=== PATIENT | female | born 1955 | race Caucasian/White ===

== ENCOUNTER 2025-05-28 15:20 | Outpatient (CLI) | payer MEDICARE, SELFPAY ==
--- OUTSIDE RECORDS SUMMARY | 2020-03-25 11:15 | XMS_ITS | Continuity of Care Document ---
Author Organization Dhruv Merlos [facility] Address ELECT[employer] INTELL[employer] OFFIC[employer] [facility] utions [address] [place] [address] Phone Care Team Providers Care Lead Game Designer Name Role Phone Geeta Fermin DDS Unavailable Unavailable Allergies, Adverse Reactions, Alerts Substance Reaction Status Criticality No Known Drug Allergies Active No I nformation Medications Medication Instructions Dosage Effective Dates (start - stop) Status Comments Nexium 40 mg capsule,delayed release take 1 capsule (40MG) by ORAL route every day - Active Ordered thru patient assistance Feosol 325 mg (65 mg Iron) Tab take 1 tablet (325MG) by ORAL route 2 times every day - Active Lotrisone 1 %-0.05 % Topical Cream Apply thinly to affected area twice a day. - Active Dispense 45gm tube 340 B potassium chloride SR 20 mEq Tab, Particles/Crystals take 1 tablet bid (20MEQ) by ORAL route every day with food for order needy meds - Active 340 B warfarin 4 mg tablet One tablet daily Saturday thru Saturday at 4 PM. - Active warfarin 3 mg Tab One tablet on Saturday and Saturday at 4PM. 3 MG - Active Procedures Procedure Date Prophylaxis-Adult Treatment [...] Provider Providers Copied on Encounter [facility], [facility] [address], [place], [address], [place] tel: [phone] [facility] No Information 0 Zander Connor. [address], [id number] 0, [place], [place], [id number], [place]. tel:[phone] Dhruv Merlos [facility] Luis Manuel modoy, [facility] [address], [place], [address], [place] tel: [phone] [facility] Encounter for dental exam and cleaning w/o abnormal findings 0 Zander Geeta. [address], [id number] 0, [place], [place], [id number], [place]. tel:[phone] Dhruv Merlos [facility] Luis Manuel moody, [facility] [address], [place], [address], [place] tel: [phone] [facility] No Information 4 [facility]. [address] [facility] Ramsey A, [id number] 0, [place], [address], [place]. tel:[phone] OFFICE/OUTPA TIENT VISIT, EST Dhruv Merlos [facility] Luis Manuel moody, [facility] [address], [place], [address], [place] tel: [phone] [facility] physical (chief complaint) Hypercoagulable stateAnxietyGERD (gastroesophageal reflux disease)Elevated BP 3 [facility]. [address] [facility] [place] A, [id number] 0, [place], [place], [id number], [place]. tel:[phone] OFFICE/OUTPA TIENT VISIT, DONTA Merlos [facility] Luis Manuel moody, [facility] [address], [place], [address], [place] tel:[phone] [facility] UTI (chief complaint) Dysuria 3 [facility]. [address] [facility] [place] A, [id number] 0, [place], [facility], [place]. tel:[phone] OFFICE/OUTPA TIENT VISIT, DONTA Merlos [facility] [place], [facility] [employer] [address] [place] [address], [place], [facility], [place] tel:[phone] Sunil Banuelos [facility] PT/INR (chief complaint) Burning with urinationPrimary hypercoagulable state 3 [facility]. [address] [facility] [place] A, [id number] 0, [place], [facility], [place]. tel:[phone] Nurse Visit / Less 7 Days Dhruv [facility], [facility] [employer] [address] [place] [address], [facility], [place] tel:[phone] Sunil Banuelos [facility] lab wk (chief complaint) No Information 2 [facility]. [address] [facility] A, [id number] [place], [place], [facility], [place]. tel:[phone] OFFICE/OUTPA TIENT VISIT, DONTA [facility] [place], [facility] [address] [place] [address], [facility], [place] tel:[phone] Sunil Banuelos [facility] sinus symptoms (acute) (chief complaint) PT/INR (chief complaint) Hypercoagulable stateAcute sinusitis 2 [facility]. 210 [facility], [id number] 0, [place], [address], [place]. tel:[phone] Nurse Visit / Less 7 Days [facility] , [facility] [employer] [address] [place] [address], [facility], [place] tel:[phone] Sunil Banuelos [facility] pro time (chief complaint) No Information 2 [facility]. [address] [facility] [place] A, [id number] 0, [place], [facility], [place]. tel:[phone] OFFICE/OUTPA TIENT VISIT, DONTA Bartlett [email or web address] [facility] , [facility] [address], [facility], [place] [phone] Sunil Banuelos [facility] F/U UTI (chief complaint) UTI (lower urinary tract infection)Vaginit is 2 [facility]. [address] [facility] [place] A, [id number] 0, [place], [facility], [place]. tel:[phone] OFFICE/OUTPA TIENT VISIT, DONTA Merlos [facility] , [facility] [address], [facility], [place] tel:[phone] Sunil Castaneda [facility] UTI (chief complaint) UTI (lower urinary tract infection)Primary hypercoagulable stateGERD (gastroesophageal reflux disease) 2 [facility]. [address] [facility] [place] A, [id number] 0, [place], [facility], [place]. tel:[phone] OFFICE/OUTPA TIENT VISIT, DONTA BowlesTopple Track [facility] , [facility] [address], [facility], [place] [phone] Sunil Banuelos [facility] follow up-INR (chief complaint) Primary hypercoagulable stateAnxietyGERD 2 [facility]. [address] [facility] [place] A, [id number] 0, [place], [facility], [place]. tel:[phone] OFFICE/OUTPA TIENT VISIT, DONTA Bartlett [email or web address] [facility] , [facility] [address], [facility], [place] tel:[phone] Sunil Castaneda [facility] back pain (chief complaint) knee pain (chief complaint) No Information 1 [facility]. [address] [facility] [place] A, [id number] 0, [place], [facility], [place]. tel:[phone] OFFICE/OUTPA TIENT VISIT, DONTA Bartlett [email or web address] [facility] [place], [facility] [address] [place] [address], [place], [facility], [place] tel: [phone] [facility] PT check (chief complaint) Pt med refill (chief complaint) No Information 1 [facility]. [address] [facility] [place] A, [id number] 0, [place], [facility], [place]. tel:[phone] Nurse Visit / Less 7 Days Dhruv Merlos [facility] Luis Manuel moody, [facility] [employer] [address] [place] [address], [place], [facility], [place] tel: [phone] [facility] No Information 1 [facility]. [address] [facility] [place] A, [id number] [facility], [place], [facility], [place]. tel: [phone] Nurse Visit Injection Dhruv Merlos [facility] Luis Manuel moody, [facility] [address] [place] [address], [place], [facility], [place] tel: [phone] [facility] pro time (chief complaint) blood work (chief complaint) No Information 1 Markuser Eder. [address] [facility] A, [id number] 0, [place], [place], [id number], [place]. tel:[phone] OFFICE/OUTPA TIENT VISIT, EST Dhruv Merlos [facility] Luis Manuel moody, [facility] [address] [place] [address], [facility], [place] tel: [phone] [facility] No Information 0 [facility]. [address] [facility] [place] A, [id number] 0, [place], [address], [place]. tel:[phone] Nurse Visit Caid And Care Primary Ins Dhruv Merlos [facility] Luis Manuel moody, [facility] [employer] [address] [place] [address], [place], [facility], [place] tel: [phone] [facility] No Information 0 [facility]. [address] [facility] [place] A, [id number] 0, [place], [address], [place]. tel:[phone] Nurse Visit Injection Dhruv Merlos [facility] Care Brit[place]u [place], [facility] [employer] [address] [place] [address], [place], [facility], [place] tel:[phone] Sunil Leonel [facility] pro time (chief complaint) No Information 0 [facility]. [address] [facility] A, [id number] 0, [place], [facility], [place]. tel:[phone] Nurse Visit Caid And Care Primary Ins Dhruv Merlos [facility] Care Britneyu [place], [facility] [address] [place] [address], [place], [facility], [place] tel:[phone] [facility] No Information 0 [facility]. [address] [facility] A, [id number] 0, [place], [facility], [place]. tel:[phone] OFFICE/OUTPA TIENT VISIT, EST Dhruv Merlos [facility] Care Brit[place]u [place], [facility] [employer] [address] [place] [address], [place], [facility], [place] tel:[phone] [facility] poison maría (chief complaint) No Information 0 [employer] Darlene. [address] [facility], [id number] 0, [place], [address], [place]. tel:[phone] OFFICE/OUTPA TIENT VISIT, EST Dhruv Merlos [facility] Luis Manuel moody, [facility] [employer] [address] [place] [address], [place], [facility], [place] tel:[phone] [facility] foot pain (chief complaint) follow up for pro time (chief complaint) Corns and callositiesGERDPr imary hypercoagulable stateInsomnia, OtherAnxiety 0 [employer] Darlene. [address] [facility], [id number] 0, [place], [address], [place]. tel:[phone] OFFICE/OUTPA TIENT VISIT, EST Dhruv Merlos [facility] Luis Manuel moody, [facility] [employer] [address] [place] [address], [place], [facility], tel:[phone] [facility] No Information Apr-0 9-201 0 [employer] Darlene. [address], [id number] [place], [place], [facility], . tel:[phone] [facility] [address] [place] [address], tel:[phone] [facility] No Information Oct- 0-201 0 [employer] Darlene. [address], [id number] [address] [place] [address], . tel:[phone] OFFICE/OUTPA TIENT VISIT, [facility] [address] [place] [address], tel:[phone] [facility] No Information Dec- 7-200 9 [employer] Darlene. [address] [facility] [address], [id number] [address] [place] [address], . tel:[phone] Family History Family Member Type Diagnosis Age At Onset No Information Payers Payer name Insurance type Covered libertarian ID cassandra tinoco(s) [employer] [id number] Social History Type Description Quantity Date Captured [...]
[2025-05-28 20:26] LABS: Hematocrit 41.4 % (37.0-47.0); Hemoglobin 13.0 g/dL (12.2-16.2); Immature Granulocytes % 0.2 %; Mean Corpuscular HGB Conc 31.4 g/dL (31.8-35.4); Mean Corpuscular Hemoglobin 30.0 pg (27.0-31.2); Mean Corpuscular Volume 95.6 fl (81-99); Nucleated Red Blood Cells % 0 %; Platelet Count 161 K/mm3 (142-424); Red Blood Count 4.33 M/mm3 (4.20-5.40); Red Cell Distribution Width-SD 48.5 fL; White Blood Count 6.5 K/mm3 (4.8-10.8)
[2025-05-28 20:37] LABS: Alanine Aminotransferase 33 U/L (12-78); Albumin Level 3.9 g/dl (3.5-5.0); Albumin/Globulin Ratio 1.6 (1.1-1.8); Alkaline Phosphatase 82 U/L (38-126); Anion Gap 10.0 mEq/L (5-15); Aspartate Amino Transferase 61 U/L (14-36); Bilirubin,Total 0.8 mg/dl (0.2-1.3); Blood Urea Nitrogen 21 mg/dl (7-17); Calcium 8.7 mg/dl (8.4-10.2); Carbon Dioxide 25 mmol/L (22.0-30.0); Chloride 105 mmol/L (98-107); Cholesterol 106 mg/dl (140-200); Creatinine,Serum 0.80 mg/dl (0.52-1.04); Estimated Glomerular Filt Rate 71 ml/min (>60); GFR (African American) 86 ML/MIN (>60); Globulin 2.4 g/dL (1.3-3.2); Glucose 88 mg/dl (74-100); HDL Cholesterol 35 mg/dl (40-60); Potassium 4.0 mmoL/L (3.5-5.1); Sodium 136 mmol/L (136-145); Total Protein,Serum 6.3 g/dl (6.3-8.2); Triglycerides 98 mg/dl (30-150)
[2025-05-28 20:55] LABS: 25-OH Vitamin D, Total 37.2 ng/mL (30-100)
[2025-05-28 21:06] LABS: Iron 100 ug/dL (37-170)
[2025-05-28 21:16] LABS: Total Iron Binding Capacity 317 ug/dL (265-497)
[2025-05-28 21:25] LABS: Hepatitis C Ab Qual. W/ RFX NEGATIVE (Negative)
[2025-05-28 21:34] LABS: Thyroid Stimulating Hormone 2.81 uIU/mL (0.465-4.68); Vitamin B12 > 1000 pg/mL (239-931)
--- OUTSIDE RECORDS SUMMARY | 2025-05-31 11:17 | XMS_ITS | Encounter Summary ---
Author Organization [facility] [address] [place] [address] Phone Care Team Providers Care Insurance Defense Paralegal Name Role Phone Keyur North MD Unavailable Unavaila ble Leandra Gonzales MD Primary Care Provider [phone] Leandra Gonzales MD Unavailable Reason for Visit * Reason Onset Date Comments Results 02/28/2024 Encounter Details Date Type Department Care Team (Late st Contact Info) Description 02/28/2024 Telephone [facility] [address] [place] [address] Leandra Gonzales MD [address] [place] [address] Social History Tobacco Use Types Packs/Day Years Used Date Smoking Tobacco: Never Smokeless Tobacco: Never Alcohol Use Standard Drinks/Week Comments No 0 (1 standard drink = 0.6 oz pur e alcohol) PHQ-2 Answer Date Recorded Patient Health Questionnaire-2 Score 0 02/26/2024 Food Insecurities Answer Date Recorded Within the past 12 months, d id you worry that your food would run out before you got money to buy more? No 02/26/2024 Within the past 12 months, d id the food you bought just not last and you didn't have money to get more? No 02/26/2024 Housing/Utilities Answer Date Recorded Are you worried about losing your housing? No 02/26/2024 Within the past 12 months, h ave you ever stayed: outside, in a car, in a tent, in an overnight mcc, or temporarily in someone else's home (i.e. couch-surfing)? No 02/26/2024 Within the past 12 months, h ave you been unable to get utilities (heat, electricity) when it was really needed? No 024 Interpersonal Safety Answer Date Record ed Do you feel physically or em otionally unsafe where you currently live? No 02/26/2024 Within the past 12 months, h ave you been hit, slapped, kicked or otherwise physically hurt by anyone? No 02/26/2024 Within the past 12 months, h ave you been hit, slapped, kicked or otherwise physically hurt by anyone? No 02/26/2024 Transportation Answer Date Recorded Within the past 12 months, h as a lack of transportation kept you from medical appointments or from doing things needed for daily living? No 02/26/2024 Utilities Answer Date Recorded Are you worried about losing your housing? No 02/26/2024 Within the past 12 months, h ave you ever stayed: outside, in a car, in a tent, in an overnight mcc, or temporarily in someone else's home (i.e. couch-surfing)? No 02/26/2024 Within the past 12 months, h ave you been unable to get utilities (heat, electricity) when it was really needed? No 024 Comments No Sex and Gender Information Value Date Recorded Sex Assigned at Not on file Legal Sex Female 2:11 PM EST Gender Identity Female 04/18/2018 6:35 AM EDT Sexual Orientation Not on file documented as of this encounter Functional Status * Are you deaf or do you have serious difficulty hearing? Answer Date of Assessment Author No 04/18/2018 7:10 AM EDT Chichi Ibarra, Registered Nurse * Are you blind or do you have serious difficulty seeing, even when wearing glasses? Answer Date of Assessment Author No 04/14/2018 2:18 PM EDT Boone Granados, Registered Nurse * Do you have serious difficulty walking or climbing stairs? (5 years old or older) Answer Date of Assessment Author No 04/18/2018 7:10 AM EDT Chichi Ibarra, Registered Nurse * Do you have difficulty dressing or bathing? (5 years old or older) Answer Date of Assessment Author No 04/18/2018 7:10 AM EDT Chichi Ibarra, Registered Nurse * Because of a physical, mental, or emotional condition, do you have difficulty doing errands alone such as visiting a doctor???s office or shopping? (15 years old or older) Answer Date of Assessment Author No 04/18/2018 7:10 AM EDT Chichi Ibarra, Registered Nurse documented as of this encounter Mental Status * Because of a physical, mental, or emotional condition, do you have serious difficulty concentrating, remembering, or making decisions? (5 years old or older) Answer Entry Date Author No 04/14/2018 2:18 PM EDT Boone Granados Registered Nurse documented in this encounter Miscellaneous Notes * Telephone Encounter - Shraddha Fischer Registered Nurse - 02/28/2024 2:06 PM EDT Patient calling [phone] (home) Read the following message to the patient: ou do have some bacteria in the urine. I want to treat this with an antibiotic. I will send that inand push fluids. Written by Leandra Gonzales MD on 02/28/2024 2:00 PM EDT Average sugar over 3 months is normal. You do have some bacteria in the urine. I want to treat this with an antibiotic. I will send that in and push fluids. Written by Leandra Gonzales MD on 02/28/2024 2:00 PM EDT Vit D is slightly low. Ok to take 5000 units daily to boost levels for 12 weeks and then decrease to 1000 units daily. You do have some bacteria in the urine. I want to treat this with an antibiotic. I will send that in and push fluids. Written by Leandra Gonzales MD on 02/28/2024 2:00 PM EDT Iron is slighlty low. I am glad you had the stool testing done. When you get the results, will you make sure to let me know. Insurance generally is good about sending them to us but I want to make sure I get to see it. I suspect iron is low from your surgery and just not absorbing iron well but I want to make sure you are not losing it in your stool. Ok to start on OTC iron. Start with low dose of ferrous sulfate 325 mgm once daily, and if tolerated, increase dose to 2-3 tabs daily. The side effects of iron are primarily GI upset and constipation. You may need to take stool softener with the medication. You do have some bacteria in the urine. I want to treat this with an antibiotic. I will send that in and push fluids. Written by Leandra Gonzales MD on 02/28/2024 2:00 PM EDT Your thyroid, which controls your metabolism, is normal. Continue your current dose of medication. You do have some bacteria in the urine. I want to treat this with an antibiotic. I will send that in and push fluids. Written by Leandra Gonzales MD on 02/28/2024 2:00 PM EDT Your CBC is fine. This measures for your red and white blood cells, the size of them and the platelets. You do have some bacteria in the urine. I want to treat this with an antibiotic. I will send that i... Written by Leandra Gonzales MD on 02/28/2024 2:00 PM EDT View Full Comments Kidney function is fine. Sugar is normal. Calcium is slightly low. Make sure you are getting calcium in your diet and you can take 1200 mg a calcium/day in supplements. Liver function is elevated slightly. I do want to repeat this in about 6 weeks to trend this out further. You can either call and schedule a lab only appointment in our office or use the walk-in lab at [facility]. You do have some bacteria in the urine. I want to treat this with an antibiotic. I will send that in and push fluids. Written by Leandra Gonzales MD on 02/28/2024 2:00 PM EDT Cholesterol is great overall. Continue to increase exercise to try and increase your HDL. High levels help protect the heart. You do have some bacteria in the urine. I want to treat this with an antibiotic. I will send that in and push fluids. Written by Leandra Gonzales MD on 02/28/2024 2:00 PM EDT Magnesium is in good range. You do have some bacteria in the urine. I want to treat this with an antibiotic. I will send that in and push fluids. Written by Leandra Gonzales MD on 02/28/2024 2:00 PM EDT Patient verbalized understanding. Patient already takes Ferrous Sulfate 325mg BID since 1999. Patient will take a third tablet daily. documented in this encounter Plan of Treatment Upcoming Encounters Date Type Department Care Team (Late st Contact Info) Description 09/17/2025 2:00 PM EST Office Visit [facility] [place] [facility] [address] [facility] [address] [place] [address] [place] [address] [place] [phone] documented as of this encounter Visit Diagnoses Not on filedocumented in this encounter Additional Health Concerns Assessment Noted Time PHQ-2 Depression Total Score: 0 02/26/20 24 2:48 PM EDT documented as of this encounter Care Teams Insurance Defense Paralegal Relationship Specialty Start Date End Date Leandra Gonzales MD PCP - General Internal Medicine 06/30/18 Leandra Gonzales MD PCP - Jacek DE GUZMAN Attributed Physician 02/01/20 Keyur North MD Attending Physician Hand Surgery 12/17/17 documented as of this encounter
--- OUTSIDE RECORDS SUMMARY | 2025-05-31 11:17 | XMS_ITS | Encounter Summary ---
Author Organization [facility] Address [facility] [place] [address] Phone Care Team Providers Care Field Artillery Operations Man Name Role Phone Keyur North MD Unavailable Unavaila ble Leandra Gonzales MD Primary Care Provider [phone] Leandra Gonzales MD Unavailable Encounter Details Date Type Department Care Team (Late st Contact Info) Description 01/01/2022 Collaborative Link Encounter [facility] [address] [place], [place] [phone] Social History Tobacco Use Types Packs/Day Years Used Date Smoking Tobacco: Never Smokeless Tobacco: Never Alcohol Use Standard Drinks/Week Comments No 0 (1 standard drink = 0.6 oz pur e alcohol) Comments No Sex and Gender Information Value Date Recorded Sex Assigned at Not on file Legal Sex Female 2:11 PM EST Gender Identity Female 04/18/2018 6:35 AM EDT Sexual Orientation Not on file documented as of this encounter Functional Status * Are you deaf or do you have serious difficulty hearing? Answer Date of Assessment Author No 04/18/2018 7:10 AM EDT Chichi Ibarra Registered Nurse * Are you blind or do you have serious difficulty seeing, even when wearing glasses? Answer Date of Assessment Author No 04/14/2018 2:18 PM EDT Boone Granados Registered Nurse * Do you have serious difficulty walking or climbing stairs? (5 years old or older) Answer Date of Assessment Author No 04/18/2018 7:10 AM EDT [place], Chichi A, Registered Nurse * Do you have difficulty dressing or bathing? (5 years old or older) Answer Date of Assessment Author No 04/18/2018 7:10 AM EDT Chichi Ibarra Registered Nurse * Because of a physical, mental, or emotional condition, do you have difficulty doing errands alone such as visiting a doctor???s office or shopping? (15 years old or older) Answer Date of Assessment Author No 04/18/2018 7:10 AM EDT Chichi Ibarra Registered Nurse documented as of this encounter Mental Status * Because of a physical, mental, or emotional condition, do you have serious difficulty concentrating, remembering, or making decisions? (5 years old or older) Answer Entry Date Author No 04/14/2018 2:18 PM EDT Boone Granados Registered Nurse documented in this encounter Progress Notes * Lydia Flood - 01/01/2022 12:55 PM EDT Scheduled patient for their physical for 02/09/2022 2:30 PM documented in this encounter Plan of Treatment Upcoming Encounters Date Type Department Care Team (Late st Contact Info) Description 09/17/2025 2:00 PM EST Office Visit [facility] Heart & Vascular [place] [facility] [address] [place] [address] [place] [address] [place] [address] documented as of this encounter Visit Diagnoses Not on filedocumented in this encounter Care Teams Field Artillery Operations Man Relationship Specialty Start Date End Date Leandra Gonzales MD PCP - General Internal Medicine 06/30/18 Leandra Gonzales MD PCP - [place] MA Attributed Physician 02/01/20 Keyur North MD Attending Physician Hand Surgery 12/17/17 documented as of this encounter
--- OUTSIDE RECORDS SUMMARY | 2025-05-31 11:18 | XMS_ITS | Encounter Summary ---
Author Organization [facility] Address [address] [place] [address] Phone Care Team Providers Care Freezer Machine Operator Name Role Phone Keyur North MD Unavailable Unavaila ble Leandra Gonzales MD Primary Care Provider [phone] Leandra Gonzales MD Unavailable Encounter Details Date Type Department Care Team (Late st Contact Info) Description 06/14/2023 SCAN [facility] [place] [facility] [address] [place] [address] [address] [place] [address] Social History Tobacco Use Types Packs/Day Years Used Date Smoking Tobacco: Never Smokeless Tobacco: Never Alcohol Use Standard Drinks/Week Comments No 0 (1 standard drink = 0.6 oz pur e alcohol) PHQ-2 Answer Date Recorded Patient Health Questionnaire-2 Score 0 02/20/2023 Comments No Sex and Gender Information Value [...] Granados Registered Nurse documented in this encounter Plan of Treatment Upcoming Encounters Date Type Department Care Team (Late st Contact Info) Description 09/17/2025 2:00 PM EST Office Visit [facility] [place] [facility] [address] [place] [address] [place] [address] [place] [address] documented as of this encounter Procedures Procedure Name Priority Date/Time Associated Diagnosis Comments ELECTROCARDIOGRAM, COMPLETE Routine 03/11/2023 documented in this encounter Results * ELECTROCARDIOGRAM, COMPLETE (03/11/2023) Historical Med EKG Final Result documented in this encounter Visit Diagnoses Not on filedocumented in this encounter Additional Health Concerns Assessment Noted Time PHQ-2 Depression Total Score: 0 02/21/20 23 2:56 PM EDT documented as of this encounter Care Teams Freezer Machine Operator Relationship Specialty Start Date End Date Leandra Gonzales MD PCP - General Internal Medicine 06/30/18 Leandra Gonzales MD PCP - Jacek DE GUZMAN Attributed Physician 02/01/20 Keyur North MD Attending Physician Hand Surgery 12/17/17 documented as of this encounter
--- OUTSIDE RECORDS SUMMARY | 2025-05-31 11:18 | XMS_ITS | Encounter Summary ---
Author Organization [facility] Address [facility] [place] [address] Phone Care Team Providers Care Lump Machine Operator Name Role Phone Keyur North MD Unavailable Unavaila ble Leandra Gonzales MD Primary Care Provider [phone] Leandra Gonzales MD Unavailable Encounter Details Date Type Department Care Team ([facility] st Contact Info) Description 10/19/2022 Collaborative Link Encounter [facility] [address] [place] [phone] Social History Tobacco Use Types Packs/Day Years [...] AM EDT Sexual Orientation Not on file COVID-19 Exposure Response Date Recorded In the last 10 days, have yo u been in contact with someone who was confirmed or suspected to have Coronavirus/COVID-19? No / Unsure 10/19/2022 3:00 PM EST documented as of this encounter Functional Status * Are you deaf or do you have serious difficulty hearing? Answer Date of Assessment Author No 04/18/2018 7:10 AM EDT Chichi Ibarra, Registered Nurse * Are you blind or do you have serious difficulty seeing, even when wearing glasses? Answer Date of Assessment Author No 04/14/2018 2:18 PM Boone Heath, Registered Nurse * Do you have serious difficulty walking or climbing stairs? (5 years old or older) Answer Date of Assessment Author No 04/18/2018 7:10 AM EDT Chichi Ibarra, Registered Nurse * Do you have difficulty dressing or bathing? (5 years old or older) Answer Date of Assessment Author No 04/18/2018 7:10 AM EDChichi Cardoza, Registered Nurse * Because of a physical, mental, or emotional condition, do you have difficulty doing errands alone such as visiting a doctor???s office or shopping? (15 years old or older) Answer Date of Assessment Author No 04/18/2018 7:10 AM EDChichi Cardoza Registered Nurse documented as of this encounter Mental Status * Because of a physical, mental, or emotional condition, do you have serious difficulty concentrating, remembering, or making decisions? (5 years old or older) Answer Entry Date Author No 04/14/2018 2:18 PM Boone Heath Registered Nurse documented in this encounter Progress Notes * Jeanie Jasso - 10/19/2022 2:36 PM EST Attempted to contact patient for Medicare Wellness Visit due on 02/10/2023, left VM. If patient returns call, please schedule for Medicare Wellness Visit with primary care office. Thank you documented in this encounter Plan of Treatment Upcoming Encounters Date Type Department Care Team (Late st Contact Info) Description 09/17/2025 2:00 PM EST Office Visit [facility] Heart & V[facility] [place] [facility] [address] [place] [address] [place] [address] [place] [address] documented as of this encounter Visit Diagnoses Not on filedocumented in this encounter Care Teams Lump Machine Operator Relationship Specialty Start Date End Date Leandra Gonzales MD PCP - General Internal Medicine 06/30/18 Leandra Gonzales MD PCP - Jacek DE GUZMAN Attributed Physician 02/01/20 Keuyr North MD Attending Physician Hand Surgery 12/17/17 documented as of this encounter
--- OUTSIDE RECORDS SUMMARY | 2025-05-31 11:18 | XMS_ITS | Encounter Summary ---
Author Organization [facility] Address [facility] [place] [address] Phone Care Team Providers Care Kaiako Kura [place] Maori Name Role Phone Keyur North MD Unavailable Unavaila ble Leandra Gonzales MD Primary Care Provider [phone] Leandra Gonzales MD Unavailable Reason for Visit * Reason Onset Date Comments Refill Request 04/28/2025 Encounter Details Date Type Department Care Team (Late st Contact Info) Description 04/28/2025 Refill [facility] & [facility] [place] [facility] [address] [place] [address] Adriana Saleh, Registered Nurse Permanent atrial fibrillation Social History Tobacco Use Types Packs/Day Years Used Date Smoking Tobacco: Never Smokeless Tobacco: Never Alcohol Use Standard Drinks/Week Comments No 0 (1 standard drink = 0.6 oz pur e alcohol) PHQ-2 Answer Date Recorded Patient Health Questionnaire-2 Score 0 11/20/2024 Food Insecurities Answer Date Recorded Within the past 12 months, d id you worry that your food would run out before you got money to buy more? No 11/20/2024 Within the past 12 months, d id the food you bought just not last and you didn't have money to get more? No 11/20/2024 Housing/Utilities Answer Date Recorded Are you worried about losing your housing? No 11/20/2024 Within the past 12 months, h ave you ever stayed: outside, in a car, in a tent, in an overnight longterm, or temporarily in someone else's home (i.e. couch-surfing)? No 11/20/2024 Within the past 12 months, h ave you been unable to get utilities (heat, electricity) when it was really needed? No 025 Interpersonal Safety Answer Date Record ed Do you feel physically or em otionally unsafe where you currently live? No 11/20/2024 Within the past 12 months, h ave you been hit, slapped, kicked or otherwise physically hurt by anyone? No 11/20/2024 Within the past 12 months, h ave you been humiliated or emotionally abused by anyone? No 11/20/2024 Transportation Answer Date Recorded Within the past 12 months, h as a lack of transportation kept you from medical appointments or from doing things needed for daily living? No 11/20/2024 Utilities Answer Date Recorded Are you worried about losing your housing? No 11/20/2024 Within the past 12 months, h ave you ever stayed: outside, in a car, in a tent, in an overnight longterm, or temporarily in someone else's home (i.e. couch-surfing)? No 11/20/2024 Within the past 12 months, h ave you been unable to get utilities (heat, electricity) when it was really needed? No 025 Comments No Sex and Gender Information Value Date Recorded Sex Assigned at Not on file Legal Sex Female 2:11 PM EST Gender Identity Female 04/18/2018 6:35 AM EDT Sexual Orientation Not on file documented as of this encounter Functional Status * Are you deaf or do you have serious difficulty hearing? Answer Date of Assessment Author No 08/28/2024 11:15 AM Shae Celaya, Registered Nurse * Are you blind or do you have serious difficulty seeing, even when wearing glasses? Answer Date of Assessment Author No 08/28/2024 11:15 AM Shae Celaya, Dana Nurse * Do you have serious difficulty walking or climbing stairs? (5 years old or older) Answer Date of Assessment Author No 08/28/2024 11:15 AM Shae Celaya, Dana Nurse * Do you have difficulty dressing or bathing? (5 years old or older) Answer Date of Assessment Author No 08/28/2024 11:15 AM Shae Celaya Registered Nurse * Because of a physical, mental, or emotional condition, do you have difficulty doing errands alone such as visiting a doctor???s office or shopping? (15 years old or older) Answer Date of Assessment Author No 08/28/2024 11:15 AM Shae Celaya Registered Nurse documented as of this encounter Mental Status * Because of a physical, mental, or emotional condition, do you have serious difficulty concentrating, remembering, or making decisions? (5 years old or older) Answer Entry Date Author No 08/28/2024 11:15 AM Shae Celaya Registered Nurse documented in this encounter Miscellaneous Notes * Telephone Encounter - Adriana Saleh Registered Nurse - 04/28/2025 8:04 AM EDT Refill Request Preferred Pharmacy information: [email or web address] - [place], [place] - [address] [place] [address] Last Appointment: 07/05/23 Future Appointment: 09/17/25 Lab(s): cbc and cmp-11/20/24 Medication Requested: [email or web address] documented in this encounter Plan of Treatment Upcoming Encounters Date Type Department Care Team (Late st Contact Info) Description 09/17/2025 2:00 PM EST Office Visit [facility] Heart & Vascular [place] [facility] [address] [facility] [facility] [address] [place] [address] [place] [address] [place] [address] documented as of this encounter Goals Goal Patient Goal Type Associated Problems Recent Progress Patient-Stated? Author BUTCH CC COLONOSCOPY PREP PATIENT EDUCATION GOAL TEMPLATE Care Plan MYC COLONOSCOPY PREP EDUCATION No Lilibeth Cardoza CC COLONOSCOPY PREP PATIENT EDUCATION GOAL TEMPLATE Care Plan MYC COLONOSCOPY PREP EDUCATION No Darlene Madrigal documented as of this encounter Visit Diagnoses Diagnosis Permanent atrial fibrillation Atrial fibrillation documented in this encounter Additional Health Concerns Active Problems Noted Date Diagnosed Date MYC COLONOSCOPY PREP EDUCATION 08/11/2024 MYC COLONOSCOPY PREP EDUCATION 08/11/2024 Assessment Noted Time PHQ-2 Depression Total Score: 0 11/21/19 25 11:28 AM EDT documented as of this encounter Care Teams Kaiako Kura [place] Maori Relationship Specialty Start Date End Date Leandra Gonzales MD PCP - General Internal Medicine 06/30/18 Leandra Gonzales MD PCP - Jacek DE GUZMAN Attributed Physician 02/01/20 Keyur North MD Attending Physician Hand Surgery 12/17/17 documented as of this encounter
--- OUTSIDE RECORDS SUMMARY | 2025-05-31 11:18 | XMS_ITS | Clinical Summary ---
Author Organization [facility] Phone Care Team Providers Care Survey Manager Name Role Phone Unavailable Primary Care Provider Unavailabl e Social History Tobacco Use Types Packs/Day Years Used Date Smoking Tobacco: Never Assessed Comments Unknown Sex and Gender Information Value Date Recorded Sex Assigned at Not on file Legal Sex Female 3:46 PM EDT Gender Identity Not on file Sexual Orientation Not on file Plan of Treatment Upcoming Encounters Date Type Department Care Team (Late st Contact Info) Description 07/13/2025 3:15 PM EST [facility] [email or web address] [address] Jalil Hall MD [address] [place] [address] Health Maintenance Due Date Last Done Comments Annual Wellness Exam 1956 Hepatitis C Screening 1971 DTaP/TDaP/Td (1 - Tdap) 1972 Breast Cancer Screening 1993 Cologuard 1998 Colon Cancer Screening 1998 Colonoscopy 1998 FIT 1998 Sigmoidoscopy 1998 Virtual Colonography 1998 Pneumococcal Vaccine 50+ (1 of 1 - PCV) 2003 Zoster (1 of 2) 2003 Bone Density Screening 2018 COVID-19 Vaccine (2023-2 5 season) 2025 Influenza Vaccine (#1) 2025 Hepatitis B Vaccine Aged Out No longe r eligible based on patient's age to complete this topic Meningococcal B Vaccine Aged Out No l onger eligible based on patient's age to complete this topic
--- OUTSIDE RECORDS SUMMARY | 2025-05-31 11:18 | XMS_ITS | Encounter Summary ---
Author Organization [facility] Address [facility] [place] [address] Phone Care Team Providers Care Harvest Contractor Name Role Phone Keyur North MD Unavailable Unavaila ble Leandra Gonzales MD Primary Care Provider [phone] Leandra Gonzales MD Unavailable Encounter Details Date Type Department Care Team ([facility] st Contact Info) Description 08/07/2022 Collaborative Link Encounter [facility] [address] [place], [place] [id number] Social History Tobacco Use Types Packs/Day Years [...] Assessment Author No 04/18/2018 7:10 AM EDT [place], Chichi A, Registered Nurse * Do you [...] documented in this encounter Progress Notes * Maria Guadalupe Sanders - 08/07/2022 12:57 PM EST Contacted patient to discuss FIT test. FIT test mailed to patient and confirming that patient received kit. If patient did not receive kit, please verify address. If address is correct - kit should be coming in the mail within the next few days. Recommending for patient to complete kit prior to endo year. Left voicemail advising patient of this information, OK per PHI. documented in this encounter Plan of Treatment Upcoming Encounters Date Type Department Care Team (Late st Contact Info) Description 09/17/2025 2:00 PM EST Office Visit [facility] Heart & Vascular [place] [facility] [address] [facility] [address] [place] [address] [place] [address] [place] [address] documented as of this encounter Visit Diagnoses Not on filedocumented in this encounter Care Teams Harvest Contractor Relationship Specialty Start Date End Date Leandra Gonzales MD PCP - General Internal Medicine 06/30/18 Leandra Gonzales MD PCP - Jacek DE GUZMAN Attributed Physician 02/01/20 Keyur North MD Attending Physician Hand Surgery 12/17/17 documented as of this encounter
--- OUTSIDE RECORDS SUMMARY | 2025-05-31 11:18 | XMS_ITS | Encounter Summary ---
Author Organization [facility] Address [facility] [place] [address] Phone Care Team Providers Care Pst Specialist Name Role Phone Keyur North MD Unavailable Unavaila ble Leandra Gonzales MD Primary Care Provider [phone] Leandra Gonzales MD Unavailable Encounter Details Date Type Department Care Team ([facility] st Contact Info) Description 06/11/2022 Collaborative Link Encounter [facility] [address] [place] [phone] Social History Tobacco Use Types Packs/Day Years [...] suspected to have Coronavirus/COVID-19? No / Unsure 06/06/2022 3:10 PM EDT documented as of this encounter Functional Status [...] documented in this encounter Progress Notes * Cookie Mixon - 06/11/2022 12:48 PM EDT Contacted patient about below open care gaps: Colonoscopy Patient is due for colonoscopy ??? please have them contact [facility] at [phone] to schedule. If patient has completed colonoscopy, please obtain provider/facility information and send telephone encounter with information to Care Gaps [facility]. documented in this encounter Plan of Treatment Upcoming Encounters Date Type Department Care Team (Late st Contact Info) Description 09/17/2025 2:00 PM EST Office Visit [facility] Heart & Vascular [place] - [facility] [address] [facility] [address] [place] [address] [place] [address] [place] [address] documented as of this encounter Visit Diagnoses Not on filedocumented in this encounter Care Teams Pst Specialist Relationship Specialty Start Date End Date Leandra Gonzales MD PCP - General Internal Medicine 06/30/18 Leandra Gonzales MD PCP - Jacek DE GUZMAN Attributed Physician 02/01/20 Keyur North MD Attending Physician Hand Surgery 12/17/17 documented as of this encounter
--- OUTSIDE RECORDS SUMMARY | 2025-05-31 11:18 | XMS_ITS | Encounter Summary ---
Author Organization [facility] Address [facility] [place] [place] [address] Phone Care Team Providers Care Assembler Dry Cell And Battery Name Role Phone Keyur North MD Unavailable Unavaila ble Leandra Gonzales MD Primary Care Provider [phone] Leandra Gonzales MD Unavailable Encounter Details Date Type Department Care Team ([facility] st Contact Info) Description 07/14/2024 Collaborative Link Encounter [facility] [address] [place], [place] [phone] Social History Tobacco Use Types Packs/Day Years [...] car, in a tent, in an overnight custodial, or temporarily in someone else's home (i.e. [...] car, in a tent, in an overnight custodial, or temporarily in someone else's home (i.e. [...] of Assessment Author No 04/14/2018 2:18 PM KEISHAT Boone Granados Registered Nurse * Do you have serious difficulty walking or climbing stairs? (5 years old or older) Answer Date of Assessment Author No 04/18/2018 7:10 AM Chichi Solorzano Registered Nurse * Do you have difficulty dressing or bathing? (5 years old or older) Answer Date of Assessment Author No 04/18/2018 7:10 AM Chichi Solorzano Registered Nurse * Because of a physical, [...] 2:18 PM EDT Boone Granados, Registered Nurse documented in this encounter Progress Notes * Marquita Madrigal - 07/14/2024 12:44 PM EST Contacted patient about below open care gaps: Said she did the 1st kit that was sent out but has not recieved any results Colorectal Cancer Screening If patient returns call, please schedule with primary care office. documented in this encounter Plan of Treatment Upcoming Encounters Date Type Department Care Team (Late st Contact Info) Description 09/17/2025 2:00 PM EST Office Visit [facility] Heart & [facility] [place] [facility] [address] [facility] [address] [place] [address] [place] [address] [place] [address] documented as of this encounter Visit Diagnoses Not on filedocumented in this encounter Additional Health Concerns Assessment Noted Time PHQ-2 Depression Total Score: 0 02/26/20 24 2:48 PM EDT documented as of this encounter Care Teams Assembler Dry Cell And Battery Relationship Specialty Start Date End Date Leandra Gonzales MD PCP - General Internal Medicine 06/30/18 Leandra Gonzales MD PCP - Jacek DE GUZMAN Attributed Physician 02/01/20 Keyur North MD Attending Physician Hand Surgery 12/17/17 documented as of this encounter
--- OUTSIDE RECORDS SUMMARY | 2025-05-31 11:18 | XMS_ITS | Clinical Summary ---
Author Organization [facility] Address [address] [place] [address] Phone Care Team Providers Care Flight Engineer Inspector Name Role Phone Keyur North MD Unavailable Unavaila ble Leandra Gonzales MD Primary Care Provider [phone] Leandra Gonzales MD Unavailable Allergies No known active allergies Medications * This document contains information received from the source organization and may not represent a complete record from that organization. Multiple Vitamin (MULTIVITAMIN) TABS Take 1 tablet by mouth daily. Active VITAMIN E PO Take 1 tablet by mouth daily. Active ascorbic acid (VITAMIN C) 500 MG TABS Take 1,000 mg by mouth daily. Active Cholecalciferol (VITAMIN D PO) Take by mouth 2 (two) times daily. Active VITAMIN A PO Take 1 tablet by mouth daily. Active Cyanocobalamin (VITAMIN B 12 PO) Take 1 tablet by mouth daily. Active B Complex Vitamins (VITAMIN B COMPLEX PO) Take 1 tablet by mouth daily. Active esomeprazole (NEXIUM) 40 MG CPDR Take 1 capsule by mouth every morning before breakfast. 90 capsule 1 5 Active ferrous gluconate (FERGON) 325 (36 FE) MG TABS Take 1 tablet by mouth 2 (two) times daily. 180 tablet 1 5 Active Zinc 100 MG TABS Take 1 tablet by mouth daily. Active TURMERIC CURCUMIN PO Take by mouth. Active Misc Natural Products (HEALTHY LIVER PO) Take by mouth 2 (two) times daily. Active furosemide (LASIX) 40 MG TABSIndications:L eft leg swelling TAKE 1 TABLET BY MOUTH EVERY MORNING. FOR SWELLING 90 tablet 1 5 Active calcium carbonate (OYSTER SHELL CALCIUM) 500 mg tablet TAKE 1 TABLET BY MOUTH TWICE A DAY 180 tablet 1 5 Active metoprolol tartrate (LOPRESSOR) 50 MG TABS TAKE 1 TABLET BY MOUTH TWICE A DAY 180 tablet 1 5 Active levothyroxine (SYNTHROID, LEVOTHROID) 50 MCG TABS TAKE 1 TABLET BY MOUTH EVERY DAY 90 tablet 1 5 Active potassium chloride SA (KLOR-CON M20) 20 MEQ TBCR Take 1 tablet by mouth 2 (two) times daily. 180 tablet 1 5 Active rivaroxaban (XARELTO) 20 mg TABSIndications:P ermanent atrial fibrillation (HCC) Take 1 tablet by mouth daily. 90 tablet 1 5 Active Active Problems Problem Noted Date Diagnosed Date Hypercoagulable state 02/07/2022 Age-related osteoporosis wit hout current pathological fracture 05/22/2019 Overview (05/22/2019): - noted on DEXA 05/21 Rivaroxaban anticoagulation - CHADS VASC = 2 Subclinical hypothyroidism 01/06/2016 Gastroesophageal reflux disease without esophagi tis 12/19/2015 Permanent atrial fibrillation 11/30/2014 History of DVT (deep vein thrombosis) 10/29/2014 S/P bariatric surgery 10/29/2014 Resolved Problems Problem Noted Date Diagnosed Date Resolved Date On amiodarone therapy 12/05/20182019 Bilateral carpal tunnel syndrome 02/11/2018 02/07/[address] ug level monitoring 12/20/2016 12/05/2018 Irregular heart rate 10/29/2014 015 Atrial fibrillation 10/29/2014 12/01/19 15 shelter current use of ant icoagulant therapy 10/29/2014 04/11/2018 Paroxysmal atrial fibrillation 10/29/2014 11/30/2014 Encounters Date Type Department Care Team Description 04/28/2025 Refill [facility] [place] [facility] [address] [place] [address] Adriana Saleh, Registered Nurse Permanent atrial fibrillation 03/29/2025 Telephone [facility] [place] [address] [place] [address] Leandra Gonzales MD from Last 3 Months Immunizations Immunization Administration Dates Next Due Betamethasone 01/14/2018 Family History Medical History Relation Name Comments Alcohol/Drugs Father Diabetes Father Heart Disease Father CHF. 72 High BP Father High Cholesterol Father Cancer Maternal Grandfather pt unaw are of type, 88 High BP Mother High Cholesterol Mother Heart Attack Other High BP Sister 1 High Cholesterol Sister 1 Thyroid Disease Sister 1 High BP Sister 2 Thyroid Disease Sister 2 Alcohol/Drugs Son 1 Diabetes Son 2 type I Blood Disorder Neg Hx Breast cancer Neg Hx Ovarian cancer Neg Hx Stroke Neg Hx Relation Name Status Comments Father Maternal Grandfather Mother Other Sister 1 Sister 2 Son 1 Son 2 Social History Tobacco Use Types Packs/Day Years Used Date Smoking Tobacco: Never Smokeless Tobacco: Never Tobacco Cessation:Counseling Given: No Alcohol Use Standard Drinks/Week Comments No 0 [...] car, in a tent, in an overnight halfway, or temporarily in someone else's home (i.e. XAware-surfing)? No 11/20/2024 Within the past 12 months, [...] car, in a tent, in an overnight halfway, or temporarily in someone else's home (i.e. [...] AM EDT Sexual Orientation Not on file Last Filed Vital Signs Vital Sign Reading Time Taken Comments Blood Pressure 126/82 11/20/2024 11:23 AM EDT Pulse 68 11/20/2024 11:23 AM EDT Temperature 36.6 C (97.8 F) 08/28/2024 11:02 AM EST Respiratory Rate 13 08/28/2024 12:15 PM EST Oxygen Saturation 98% 11/20/2024 11:23 AM EDT Inhaled Oxygen Concentration - - Weight 88 kg (194 lb) 11/20/2024 11:23 AM EDT Height 165.1 cm (5' 5 ) 11/20/2024 11:23 AM EDT Body Mass Index 32.28 11/20/2024 11:23 AM EDT Plan of Treatment Upcoming Encounters Date Type Department Care Team (Late st Contact Info) Description 09/17/2025 2:00 PM EST Office Visit [facility] Heart & V[facility] [place] - [facility] [address] [facility] [address] [place] [address] [place] [address] [place] [address] Health Maintenance Due Date Last Done Comments DTap,Tdap,and Td (1 - Tdap) 1964 Pneumococcal 50+ (1 of 1 - PCV) 2003 Shingrix (#1) 2003 Mammogram Screening 10/03/2024 10/03/2023, 09/29/2021, 05/22/2019, Additional history exists Influenza Vaccine (#1) 2025 Wellness 65 and over 11/20/2025 11/20/2024, 02/26/2024, 02/20/2023, Additional history exists RSV Vaccine (60+ or ) (1 - 1-dose 75+ series) 2028 Colonoscopy 08/28/2034 08/28/2024 DEXA Scan Completed 10/03/2023, 09/03, 05/22/2019 Hepatitis C Screening Completed 12/30/2024 , 05/20/2024, 08/15/2018 (Declined) HPV Aged Out No longer eligi ble based on patient's age to complete this topic Meningococcal conjugate valent 4 (MCV4) Aged Out No longer eligible based on patient's age to complete this topic RSV Immunization (<20 months) Aged Out No longer eligible based on patient's age to complete this topic Goals Goal Patient Goal Type Associated Problems Recent Progress Patient-Stated? Author BUTCH CC COLONOSCOPY PREP PATIENT EDUCATION GOAL TEMPLATE Care Plan MYC COLONOSCOPY PREP EDUCATION No Lilibeth Cardoza CC COLONOSCOPY PREP PATIENT EDUCATION GOAL TEMPLATE Care Plan MYC COLONOSCOPY PREP EDUCATION No Darlene Madrigal Procedures Procedure Name Priority Date/Time Associated Diagnosis Comments ACUTE HEPATITIS PANEL (HAA, HBCM, HBAG, HCV WITH REFLEX TO HCV QUANT NAAT) Routine 12/30/2024 12:01 PM EDT Elevated transaminase level DXA BONE DENSITY Routine 10/03/2023 3:18 PM EST Age-related osteoporosis without current pathological fracture CAROLYN SCR BILAT Routine 10/03/2023 2:58 PM EST Encounter for screening mammogram for malignant neoplasm of breast from Last 3 Months or Most Recently Relevant to Health Maintenance Results * Acute Hepatitis Panel (HAA, HBCM, HBAG, HCV with reflex to HCV QUANT NAAT) (12/30/2024 12:01 PM EDT) HEPATITIS A AB IGM NONREACTIVE NONREACTIVE [facility]CE[facility] HEP B CORE IGM NONREACTIVE NONREACTIVE B [facility] RECEIV[facility] HEP B SURFACE AG NONREACTIVE NONREACTIVE [facility] Comment: (NOTE) HBsAg not detected. Does not exclude possibility of exposure to HBV. HEPATITIS C AB NONREACTIVE NONREACTIVE B [facility] RECEIV[facility] Comment: (NOTE) No antibodies to HCV detected. Does not exclude possibility of exposure to HCV. Test performed using Bridgett Elecsys electrochemiluminescence immunassay (ECLIA). Tested at: [facility], [address] [address] Whole Blood 12/30/2024 12:0 1 PM EDT 12/30/2024 12:06 PM EDT us Leandra Gonzales MD LAB BLOOD ORDERABLES Final Resul t [facility] [address] [place] [address] [facility]CE[facility] [address] [place] [address] * DXA BONE DENSITY (10/03/2023 3:18 PM EST) Anatomical Region Laterality Modality Chest Radiographic Lien ging, Mammography 10/03/2023 4:18 PM EST Impressions 10/03/2023 4:19 PM EST OSTEOPOROSIS. T-scores fulfill WHO criteria for osteoporosis. The risk of fracture is increased. Consider treatment if clinically appropriate. It is important to exclude secondary causes of osteoporosis. Patients with low bone density should have regular DXA scans. The scanning interval should be determined according to the clinical status of the patient and/or the treatment regimen. INTERVAL CHANGE: There is a statistically significant change as follows: There has been a change of 0.032 g/cm2 or a 3.8% increase at the lumbar spine Comparison is made using BMD, not T-scores. The spine followed by the total hip are the most reliable anatomic sites for comparison. While the femoral neck and radius are validated for diagnosis, these sites typically have lower precision and are therefore less reliable for evaluating change in BMD and/or decision making regarding pharmacologic therapy. Narrative 10/03/2023 4:19 PM EST HISTORY: Age-related osteoporosis without current pathological fracture Screening for osteoporosis COMPARISON: 2021 NOTE: If there are questions about the content of this report, please contact [facility] radiology by calling [phone] DXA scanner: LoiLo W ([id number]). LSC in g/cm2 at 95% confidence: Lumbar spine 0.027, Total hip 0.034. FRAX software version: 3.08. COMPARISON machine: Same TECHNICAL LIMITATIONS/EXCLUSIONS: None FINDINGS: LUMBAR SPINE L1-L4: T-score: -1.5 BMD in g/cm2: 0.881 LEFT HIP: Neck T-score: -3.0 Neck BMD in g/cm2: 0.517 Total T-score: -3.4 Total BMD in g/cm2: 0.53 FRAX: Not reported because T-score of the hip or spine is not between -1.0 and - 2.5 (per NOF guidelines) FRAX risk factor(s): None Major osteoporotic fracture risk: Not reported% Hip fracture risk: Not reported% The FRAX calculation is based on patient answers to a questionnaire and can be associated with overestimation or underestimation of fracture risk. Therefore FRAX should be validated by the ordering physician. NOTE REGARDING TREATMENT: Approaches to reduce osteoporosis-related fracture risk include optimizing calcium and vitamin D status and fall-prevention measures. The National Osteoporosis Foundation treatment guidelines recommend treatment for: - Those with hip fracture or vertebral fracture (clinical or asymptomatic) - Those with T-score -2.5 or lower at total hip, femoral neck or spine by DXA, after appropriate evaluation - Low bone mass and 10-year probability of a hip fracture equal to or greater than 3% or a 10-year probability of a major osteoporotic fracture equal to or greater than 20% (FRAX). All treatment decisions require clinical management and consideration of individual factors. Procedure Note Gal Ferguson MD - 10/03/2023 HISTORY: Age-related osteoporosis without current pathological fractureScreening for osteoporosis COMPARISON: 2021 NOTE: If there are questions about the content of this report, pleasecontact [facility] radiology by calling [phone] DXA scanner: LoiLo W ([id number]). LSC in g/cm2 at 95%confidence: Lumbar spine 0.027, Total hip 0.034. FRAX software version:3.08. COMPARISON machine: Same TECHNICAL LIMITATIONS/EXCLUSIONS: None FINDINGS: LUMBAR SPINE L1-L4: T-score: -1.5 BMD in g/cm2: 0.881 LEFT HIP: Neck T-score: -3.0 Neck BMD in g/cm2: 0.517 Total T-score: -3.4 Total BMD in g/cm2: 0.53 FRAX: Not reported because T-score of the hip or spine is not between -1.0and - 2.5 (per NOF guidelines) FRAX risk factor(s): None Major osteoporotic fracture risk: Not reported% Hip fracture risk: Not reported% The FRAX calculation is based on patient answers to a questionnaire andcan be associated with overestimation or underestimation of fracture risk.Therefore FRAX should be validated by the ordering physician. NOTE REGARDING TREATMENT: Approaches to reduce osteoporosis-related fracture risk include optimizingcalcium and vitamin D status and fall-prevention measures. The NationalOsteoporosis Foundation treatment guidelines recommend treatment for: - Those with hip fracture or vertebral fracture (clinical orasymptomatic) - Those with T-score -2.5 or lower at total hip, femoral neck or spine byDXA, after appropriate evaluation - Low bone mass and 10-year probability of a hip fracture equal to orgreater than 3% or a 10-year probability of a major osteoporotic fractureequal to or greater than 20% (FRAX). All treatment decisions require clinical management and consideration ofindividual factors. IMPRESSION OSTEOPOROSIS. T-scores fulfill WHO criteria for osteoporosis. The risk offracture is increased. Consider treatment if clinically appropriate. Itis important to exclude secondary causes of osteoporosis. Patients withlow bone density should have regular DXA scans. The scanning interval should be determined according tothe clinical status of the patient and/or the treatment regimen. INTERVAL CHANGE: There is a statistically significant change as follows: There has been a change of 0.032 g/cm2 or a 3.8% increase at the lumbarspine Comparison is made using BMD, not T-scores. The spine followed by thetotal hip are the most reliable anatomic sites for comparison. While thefemoral neck and radius are validated for diagnosis, these sites typicallyhave lower precision and are therefore less reliable for evaluating change in BMD and/or decisionmaking regarding pharmacologic therapy. Leandra Gonzales MD [facility] Final Result * CAROLYN SCR BILAT (10/03/2023 2:58 PM EST) Anatomical Region Laterality Modality Chest Bilateral Mammography, Rad iographic Imaging 10/03/2023 4:38 PM EST Impressions 10/03/2023 4:39 PM EST No mammographic evidence of malignancy CATEGORY BI-RADS: 1: Negative MANAGEMENT: Routine annual mammography unless otherwise clinically indicated NOTE: If additional imaging is recommended, the Breast Center will contact the patient directly to coordinate that appointment, or scheduling can be reached at [phone]. RISK ASSESSMENT: A preliminary breast cancer risk assessment was conducted as part of the patient?s screening mammogram. Patients with a preliminarily elevated screening score who are interested in further information are encouraged to contact our High Risk Navigator at [phone], or provider can place a referral to the high risk breast program, [id number]. Patient's lifetime Lyric model risk: 5.61% (20% and greater considered high risk) [facility] Family History Risk Score: 0 (1 and greater considered high risk) Narrative 10/03/2023 4:39 PM EST SCREENING DIGITAL BILATERAL MAMMOGRAM WITH COMPUTER AIDED DETECTION HISTORY: Routine annual screening COMPARISON: Multiple prior mammograms with the most recent prior dated 09/29/2021 TECHNIQUE: Bilateral mediolateral oblique and craniocaudal views with computer aided detection BREAST COMPOSITION: Scattered fibroglandular densities FINDINGS: No suspicious masses, suspicious microcalcifications or areas of nonsurgical architectural distortion identified. Leandra Gonzales MD [facility] Final Result from Last 3 Months or Most Recently Relevant to Health Maintenance Additional Health Concerns Active Problems Noted Date Diagnosed Date MYC COLONOSCOPY PREP EDUCATION 08/11/2024 MYC COLONOSCOPY PREP EDUCATION 08/11/2024 Insurance [facility] MEDIC[facility] REPLACEMENT [id number] [place], [facility] Care Teams Flight Engineer Inspector Relationship Specialty Start Date End Date Leandra Gonzales MD PCP - General Internal Medicine 06/30/18 Leandra Gonzales MD PCP - Jacek DE GUZMAN Attributed Physician 02/01/20 Keyur North MD Attending Physician Hand Surgery 12/17/17
== END 2025-05-28 23:59 ==
LOC: LAB.DROPOF 05-31 11:10
PROVIDERS: PCP Family Medicine; Visit Provider Family Medicine
DX: M81.0 Age-related osteoporosis without current pathological fracture (principal); E03.9 Hypothyroidism, unspecified; R60.0 Localized edema; Z98.84 Bariatric surgery status; Z11.59 Encounter for screening for other viral diseases
CPT/HCPCS: 80053; 80061; 82306; 82607; 83540; 83550; 84443; 85025; 86803; 87389

== ENCOUNTER 2025-07-08 08:48 | Outpatient (CLI) | payer MEDICARE, SELFPAY ==
--- OUTSIDE RECORDS SUMMARY | 2025-07-08 08:59 | XMS_ITS | Encounter Summary ---
Author Organization [facility] Address [facility] [place] [address] Phone Care Team Providers Care Red Mud Thickener Operator Name Role Phone Keyur North MD Unavailable Unavaila ble Leandra Gonzales MD Primary Care Provider [phone] Leandra Gonzales MD Unavailable Encounter Details Date Type Department Care Team ([facility] st Contact Info) Description 10/19/2022 Collaborative Link Encounter [facility] [address] [place] [phone] Social History Tobacco Use Types Packs/Day Years [...] Description 09/17/2025 2:00 PM EST Office Visit [facility] Heart & Vascular [place] - [facility] [address] [facility] [address] [place] [address] [place] [address] [place] [address] documented as of this encounter Visit Diagnoses Not on filedocumented in this encounter Care Teams Red Mud Thickener Operator Relationship Specialty Start Date End Date Leandra Gonzales MD PCP - General Internal Medicine 06/30/18 Leandra Gonzales MD [address] [place] [address] PCP - Jacek DE GUZMAN Attributed Physician 02/01/20 04/01/25 Keyur North MD Attending Physician Hand Surgery 12/17/17 documented as of this encounter
--- OUTSIDE RECORDS SUMMARY | 2025-07-08 08:59 | XMS_ITS | Clinical Summary ---
Author Organization [facility] Phone Care Team Providers Care Signalman Name Role Phone Unavailable Primary Care Provider [...] Description 07/13/2025 3:15 PM EST [facility] [address] [place] [address] Jalil Hall MD [address] [place] [address] Health Maintenance Due Date Last Done Comments Annual Wellness Exam 1956 Hepatitis C Screening 1971 DTaP/TDaP/Td (1 - Tdap) 1972 Breast Cancer Screening 1993 Cologuard 1998 Colon Cancer Screening 1998 Colonoscopy 1998 FIT 1998 Sigmoidoscopy 1998 Virtual Colonography 1998 Pneumococcal Vaccine 50+ (1 of 1 - PCV) 2003 Zoster (1 of 2) 2003 Bone Density Screening 2018 COVID-19 Vaccine (2024-2 6 season) 2025 Influenza Vaccine (#1) 2025 Hepatitis B Vaccine Aged Out No longe r eligible based on patient's age to complete this topic Meningococcal B Vaccine Aged Out No l onger eligible based on patient's age to complete this topic
--- OUTSIDE RECORDS SUMMARY | 2025-07-08 08:59 | XMS_ITS | Encounter Summary ---
Author Organization [facility] Address [facility] [place] [place] [address] Phone Care Team Providers Care Director Of Corporate Strategy Name Role Phone Keyur North MD Unavailable Unavaila ble Leandra Gonzales MD Primary Care Provider [phone] Leandra Gonzales MD Unavailable Encounter Details Date Type Department Care Team ([facility] st Contact Info) Description 07/14/2024 Collaborative Link Encounter [facility] [address] [place], [place] [phone] Social History Tobacco Use Types Packs/Day Years [...] car, in a tent, in an overnight assisted, or temporarily in someone else's home (i.e. [...] humiliated or emotionally abused by anyone? No 02/26/2024 Transportation Answer Date [...] car, in a tent, in an overnight assisted, or temporarily in someone else's home (i.e. [...] of Assessment Author No 04/18/2018 7:10 AM KEISHAT Chichi Ibarra, Registered Nurse * Do you have difficulty dressing or bathing? (5 years old or older) Answer Date of Assessment Author No 04/18/2018 7:10 AM KEISHAT Chichi Ibarra Registered Nurse * Because of [...] Description 09/17/2025 2:00 PM EST Office Visit [facility] Heart & Vascular [place] - [facility] [address] [facility] [address] [place] [address] [place] [address] [place] [address] documented as of this encounter Visit Diagnoses Not on filedocumented in this encounter Additional Health Concerns Assessment Noted Time PHQ-2 Depression Total Score: 0 02/26/20 24 2:48 PM EDT documented as of this encounter Care Teams Director Of Corporate Strategy Relationship Specialty Start Date End Date Leandra Gonzales MD PCP - General Internal Medicine 06/30/18 Leandra Gonzales MD [address] [place] [address] PCP - [place] MA Attributed Physician 02/01/20 04/01/25 Keyur North MD Attending Physician Hand Surgery 12/17/17 documented as of this encounter
--- OUTSIDE RECORDS SUMMARY | 2025-07-08 08:59 | XMS_ITS | Encounter Summary ---
Author Organization [facility] Address [facility] [place] [address] Phone Care Team Providers Care Thermodynamics Professor Name Role Phone Keyur North MD Unavailable Unavaila ble Leandra Gonzales MD Primary Care Provider [phone] Leandra Gonzales MD Unavailable Encounter Details Date Type Department Care Team ([facility] st Contact Info) Description 06/11/2022 Collaborative Link Encounter [facility] [address] [place] [phone] Social History Tobacco Use Types Packs/Day Years [...] for colonoscopy ??? please have them contact [facility] at [phone] to schedule. If patient has completed colonoscopy, please obtain provider/facility information and send telephone encounter with information to Care Gaps [facility]. documented in this encounter Plan of Treatment Upcoming Encounters Date Type Department Care Team (Late st Contact Info) Description 09/17/2025 2:00 PM EST Office Visit [facility] Heart & Vascular [place] - [facility] [address] [facility] [address] [place] [address] [place] [address] [place] [address] documented as of this encounter Visit Diagnoses Not on filedocumented in this encounter Care Teams Thermodynamics Professor Relationship Specialty Start Date End Date Leandra Gonzales MD PCP - General Internal Medicine 06/30/18 Leandra Gonzales MD [address] [place] [address] PCP - Jacek DE GUZMAN Attributed Physician 02/01/20 04/01/25 Keyur North MD Attending Physician Hand Surgery 12/17/17 documented as of this encounter
--- OUTSIDE RECORDS SUMMARY | 2025-07-08 08:59 | XMS_ITS | Encounter Summary ---
Author Organization [facility] Address [address] [place] [address] Phone Care Team Providers Care Block Mechanic Name Role Phone Keyur North MD Unavailable Unavaila ble Leandra Gonzales MD Primary Care Provider [phone] Leandra Gonzales MD Unavailable Encounter Details Date Type Department Care Team (Late st Contact Info) Description 06/14/2023 SCAN [facility] Heart & V[facility] [place] [address] [place] [address] Social History Tobacco Use Types [...] Office Visit [facility] [place] [facility] [address] [facility] [address] [place] [address] [place] [address] [place] [address] documented as of this encounter Procedures Procedure [...] documented as of this encounter Care Teams Block Mechanic Relationship Specialty Start Date End Date Leandra Gonzales MD PCP - General Internal Medicine 06/30/18 Leandra Gonzales MD [address] [place] [address] PCP - Jacek DE GUZMAN Attributed Physician 02/01/20 04/01/25 Keyur North MD Attending Physician Hand Surgery 12/17/17 documented as of this encounter
--- OUTSIDE RECORDS SUMMARY | 2025-07-08 08:59 | XMS_ITS | Clinical Summary ---
Author Organization [facility] Address [address] [place] [address] Phone Care Team Providers Care Geriatric Personal Care Aide Name Role Phone Keyur North MD, Sarah MD Primary Care Provider [phone] Allergies No known active allergies Medications * [...] 10/29/2014 015 Atrial fibrillation 10/29/2014 12/01/19 15 correction current use of ant icoagulant therapy 10/29/2014 04/11/2018 Paroxysmal atrial fibrillation 10/29/2014 11/30/2014 Encounters Date Type Department Care Team Description 04/28/2025 Refill [facility] [address] [place] [address] Adriana Saleh, Registered Nurse Permanent atrial fibrillation from Last 3 Months Immunizations Immunization Administration [...] car, in a tent, in an overnight chcf, or temporarily in someone else's home (i.e. [...] car, in a tent, in an overnight chcf, or temporarily in someone else's home (i.e. [...] Description 09/17/2025 2:00 PM EST Office Visit [facility] [place] [facility] [address] [facility] [facility] [address] [place] [address] [place] [address] [place] [address] Health Maintenance Due Date Last [...] Type Associated Problems Recent Progress Patient-Stated? Author MYC CC COLONOSCOPY PREP PATIENT EDUCATION GOAL TEMPLATE [...] EDT) HEPATITIS A AB IGM NONREACTIVE NONREACTIVE [facility] HEP B CORE IGM NONREACTIVE NONREACTIVE B [facility] HEP B SURFACE AG NONREACTIVE NONREACTIVE [facility] Comment: (NOTE) HBsAg not detected. Does not exclude possibility of exposure to HBV. HEPATITIS C AB NONREACTIVE NONREACTIVE B [facility] RECEIV[facility] Comment: (NOTE) No antibodies to HCV detected. Does not exclude possibility of exposure to HCV. Test performed using Bridgett Elecsys electrochemiluminescence immunassay (ECLIA). Tested at: [facility], [address] [place] [address] Whole Blood 12/30/2024 12:0 1 PM EDT 12/30/2024 12:06 PM EDT us Leandra Gonzales MD LAB BLOOD ORDERABLES Final Resul t [facility] [address] [place] [address] [facility] [address] [place] [address] * DXA BONE DENSITY (10/03/2023 3:18 PM [...] the content of this report, please contact [facility] radiology by calling [phone] DXA scanner: Content Raven W ([id number]). LSC in g/cm2 at 95% confidence: Lumbar [...] about the content of this report, pleasecontact [facility] radiology by calling [phone] DXA scanner: VasoNova Horizon W ([id number]). LSC in g/cm2 at 95%confidence: Lumbar spine [...] in BMD and/or decisionmaking regarding pharmacologic therapy. us Leandra LEON Final Result * CAROLYN SCR BILAT (10/03/2023 [...] appointment, or scheduling can be reached at [phone]. RISK ASSESSMENT: A preliminary breast cancer risk assessment was conducted as part of the patient?s screening mammogram. Patients with a preliminarily elevated screening score who are interested in further information are encouraged to contact our High Risk Navigator at [phone], or provider can place a referral to the high risk breast program, [id number]. Patient's lifetime Lyric model risk: 5.61% (20% and greater considered high risk) [facility] Family History Risk Score: 0 (1 [...] nonsurgical architectural distortion identified. Leandra Gonzales MD [facility] Final Result from Last 3 Months or Most Recently Relevant to Health Maintenance Additional Health Concerns Active Problems Noted Date Diagnosed Date MYC COLONOSCOPY PREP EDUCATION 08/11/2024 MYC COLONOSCOPY PREP EDUCATION 08/11/2024 Insurance [employer] REPLACEMENT Care Teams Geriatric Personal Care Aide Relationship Specialty Start Date End Date Leandra Gonzales MD PCP - General Internal Medicine 06/30/18 Keyur North MD Attending Physician Hand Surgery 12/17/17
--- OUTSIDE RECORDS SUMMARY | 2025-07-08 08:59 | XMS_ITS | Encounter Summary ---
Author Organization [facility] Address [facility] [place] [address] Phone Care Team Providers Care Rough Planer Tender Name Role Phone Keyur North MD Unavailable Unavaila ble Leandra Gonzales MD Primary Care Provider [phone] Leandra Gonzales MD Unavailable Encounter Details Date Type Department Care Team ([facility] st Contact Info) Description 08/07/2022 Collaborative Link Encounter [facility] [address] [place], [place] [id number] Social History Tobacco Use Types Packs/Day Years [...] Assessment Author No 04/18/2018 7:10 AM EDT Ed[place], Chichi A, Registered Nurse * Do you [...] Description 09/17/2025 2:00 PM EST Office Visit [facility] [place] [facility] [address] [place] [address] [place] [address] [place] [address] documented as of this encounter Visit Diagnoses Not on filedocumented in this encounter Care Teams Rough Planer Tender Relationship Specialty Start Date End Date Leandra Gonzales MD PCP - General Internal Medicine 06/30/18 Leandra Gonzales MD [address] [place] [address] PCP - Jacek DE GUZMAN Attributed Physician 02/01/20 04/01/25 Keyur North MD Attending Physician Hand Surgery 12/17/17 documented as of this encounter
--- OUTSIDE RECORDS SUMMARY | 2025-07-08 08:59 | XMS_ITS | Encounter Summary ---
Author Organization [facility] Address [facility] [place] [address] Phone Care Team Providers Care Liquified Natural Gas Specialist Name Role Phone Keyur North MD Unavailable Unavaila ble Leandra Gonzales MD Primary Care Provider [phone] Leandra Gonzales MD Unavailable Encounter Details Date Type Department Care Team (Late st Contact Info) Description 01/01/2022 Collaborative Link Encounter [facility] [address] [place], [place] [id number] Social History Tobacco Use Types Packs/Day Years [...] Assessment Author No 04/18/2018 7:10 AM EDT [place], Chichi A, Registered Nurse * Do you [...] Description 09/17/2025 2:00 PM EST Office Visit [facility] [place] [facility] [address] [facility] [address] [place] [address] [place] [address] [place] [address] documented as of this encounter Visit Diagnoses Not on filedocumented in this encounter Care Teams Liquified Natural Gas Specialist Relationship Specialty Start Date End Date Leandra Gonzales MD PCP - General Internal Medicine 06/30/18 Leandra Gonzales MD [address] [facility] [place] [address] PCP - Jacek DE GUZMAN Attributed Physician 02/01/20 04/01/25 Keyur North MD Attending Physician Hand Surgery 12/17/17 documented as of this encounter
--- OUTSIDE RECORDS SUMMARY | 2025-07-08 08:59 | XMS_ITS | Encounter Summary ---
Author Organization [facility] Address [facility] [place] [address] Phone Care Team Providers Care Cash Register Servicer Name Role Phone Keyur North MD Unavailable Unavaila ble Leandra Gonzales MD Primary Care Provider [phone] Leandra Gonzales MD Unavailable Reason for Visit * Reason Onset Date Comments Results 02/28/2024 Encounter Details Date Type Department Care Team (Late st Contact Info) Description 02/28/2024 Telephone [facility] [address] [place] [address] Leandra Gonzales MD [address] [place] [address] Social History Tobacco Use Types [...] car, in a tent, in an overnight care home, or temporarily in someone else's home (i.e. [...] car, in a tent, in an overnight care home, or temporarily in someone else's home (i.e. [...] - 02/28/2024 2:06 PM EDT Patient calling [phone] (home) Read the following message to the [...] office or use the walk-in lab at [facility]. You do have some [...] Description 09/17/2025 2:00 PM EST Office Visit [facility] [place] [facility] [address] [facility] [address] [place] [address] [place] [address] [place] [address] documented as of this encounter Visit Diagnoses Not on filedocumented in this encounter Additional Health Concerns Assessment Noted Time PHQ-2 Depression Total Score: 0 02/26/20 24 2:48 PM EDT documented as of this encounter Care Teams Cash Register Servicer Relationship Specialty Start Date End Date Leandra Gonzales MD PCP - General Internal Medicine 06/30/18 Leandra Gonzales MD [address] [place] [address] PCP - Jacek DE GUZMAN Attributed Physician 02/01/20 04/01/25 Keyur North MD Attending Physician Hand Surgery 12/17/17 documented as of this encounter
--- NOTE | 2025-07-08 09:00 | XR_ITS ---
FINAL REPORT TECHNIQUE: Bone densitometry calculations of the lumbar spine and left hip were obtained. CLINICAL HISTORY: Osteoporosis Bone Density Screening COMPARISON: None FINDINGS: Using L1-4, the bone mineral density of the spine is 0.883 g/cm2, corresponding to T-score of -1.5 and a Z score of 0.7. This is within the range of osteopenia. Using the left hip, the bone mineral density of the femoral neck is 0.540 g/cm2, corresponding to a T-score of -3.3 and a Z-score of -1.7. This is within the range of osteoporosis. Using the right hip, the bone mineral density of the femoral neck is 0.612 g/cm?, corresponding to a T-score of -2.7 and a Z-score of -1.1. This is within the range of osteoporosis. NOTE: T-score: Standard deviation compared with peak bone mass of young adult mean. *Following the recommendations of the International Society of Bone densitometry, classification of hip BMD is based on the lower of two T-scores; total hip or femoral neck. IMPRESSION: 1. Bone mineral density of the lumbar spine within the range of osteopenia. 2. Bone mineral density of the bilateral femoral necks within the range of osteoporosis. Reviewed, Interpreted and Dictated by Maile Bartlett MD Transcribed by Jonelle Granados Authenticated and [facility]
== END 2025-07-08 23:59 | disposition home or self-care (01) ==
LOC: RAD 08:49
PROVIDERS: PCP Family Medicine; Visit Provider Family Medicine
DX: M85.88 Other specified disorders of bone density and structure, other site (principal); M81.0 Age-related osteoporosis without current pathological fracture; M19.90 Unspecified osteoarthritis, unspecified site
CPT/HCPCS: 77080

== ENCOUNTER 2025-07-23 11:00 | Outpatient (CLI) | payer MEDICARE, SELFPAY ==
--- OUTSIDE RECORDS SUMMARY | 2025-07-13 15:15 | XMS_ITS | Encounter Summary ---
Author Organization [facility] Address [address] [place] [address] Care Team Providers Care Director Of Mobile Marketing Name Role Phone Unavailable Primary Care Provider Unavailabl e Reason for Referral * Surgical (Routine) - Pending Review Specialty Diagnoses / Procedures Referred By Contac t Referred To Contact Diagnoses Primary osteoarthritis of left knee Procedures AMB [facility] [place] [address] [place] [address] Phone: tel: fax: Referral ID Status Reason Start Date Expiration Date V isits Requested Visits Authorized [id number] Pending Review 07/13/2025 07/13/2026 1 1 * Physical Therapy (Routine) - Pending Review Specialty Diagnoses / Procedures Referred By Esa lopez Referred To Contact Physical Therapy Diagnoses Primary [place] [address] [place] [address] Phone: tel: fax: Referral ID Status Reason Start Date Expiration Date V isits Requested Visits Authorized [id number] Pending Review 07/13/2025 07/13/2026 1 1 Question Answer surgical procedure total knee arthroplasty Evaluate and Treat Yes Select as appropriate Evaluate and treat appropriately Modalities/Procedures As Indicated Therapeutic Exercise As Indicated Goals: Decrease pain and swelling, Increase ROM, Increase function, Increase strength Additional instructions: Frequency and duration per therapist discretion, Teach HEP Medical Necessity: Prevent need for non-conservative measures, Promote full function post operatively Reason for Visit * Reason Comments Pain Encounter Details Date Type Department Care Team (Late st Contact Info) Description 07/13/2025 3:15 PM EST Office Visit [facility] [address] [place], [place] [id number] Jalil Hall MD [address] [place] [address] Left knee pain, unspecified chronicity (Primary Dx); Primary osteoarthritis of left knee Social History Tobacco Use Types Packs/Day Years Used Date Smoking Tobacco: Never Assessed Comments Unknown Sex and Gender Information Value Date Recorded Sex Assigned at Not on file Legal Sex Female 3:46 PM EDT Gender Identity Not on file Sexual Orientation Not on file documented as of this encounter Progress Notes * Jalil Hall MD - 07/13/2025 3:15 PM EST Images from the original note were not included. [address] [phone] ([phone] [place], [place] [phone] [place], [place] Marley López 1955 Chief Complaint Patient presents with Left Knee - Pain Subjective: Marley López is a 69 y.o. female presenting for evaluation of Left more than right knee pain. Referred by Dr. Meneses New Patient The pain began a few years ago. Pain is described as grinding, dull, aching of the knee. Symptoms improve with rest, ice, OTC NSAIDs. The symptoms are worse with activity such as walking, exercising,kneeling, and squatting. Treatment to date has been without significant relief. At this point, the patient describes having significant pain. The pain is more than just a nuisance; it is affecting the patient's quality of life. Going up and down stairs, standing for long periodsof time, and walking long distances are difficult. Rest, ice, anti-inflammatory medications and assisted devices have been tried. None of this has really solved the problem. Left more than right knee pain Affects her QOL Tried rest, ice, nsaids, injections, PT exercises. No lasting relief. Here today to discuss surgical intervention. Non Smoker Tried PT BMI of less than 35 Social History Substance and Sexual Activity Drug Use Not on file Tobacco Use History[1] Objective: Review of Systems Constitutional: Negative. Respiratory: Negative. Cardiovascular: Negative. Gastrointestinal: Negative. Musculoskeletal: Positive for joint pain. Skin: Negative. There is no height or weight on file to calculate BMI. On physical examination the patient is alert and oriented. Appropriate mood for the conversation. Well-developed and well-nourished in appearance. Limited gait examination reveals no obvious abnormalities. Bilateral upper and lower extremities demonstrate apparently normal range of motion and stability with intact pulses and sensation to light touch of the wrist, hand, ankle and foot bilaterally.Skin of bilateral upper and lower extremities with no obvious rash or lesions. Apparently normal muscle tone and reflexes for bilateral knees and ankles. No evidence of obvious significant lymphedemaof bilateral lower extremities. Respiratory rate is normal by clinical examination. Pulse rate is normal by peripheral pulse examination. Right Knee Exam Comments: Examination of the right knee shows that it is stable to varus and valgus stressing. Normal anterior/posterior drawer testing. Normal Real testing. Normal Jennifer testing. There is tenderness to palpation over the medial joint line, as well as the patellofemoral joint. The skin is intact. Left Knee Exam Comments: Examination of the left knee shows that it is stable to varus and valgus stressing. Normal anterior/posterior drawer testing. Normal Real testing. Normal Jennifer testing. There is tenderness to palpation over the medial joint line, as well as the patellofemoral joint. The skin is intact. Imaging: X-rays reviewed today of the bilateral knee show osteoarthritic degenerative change with joint space narrowing, subchondral sclerosis and osteophyte formation. There are no acute findings noted in these films. Kellgren-Oscar Grade 3/4 Assessment and Plan: Diagnoses and all orders for this visit: Left knee pain, unspecified chronicity - XR KNEE LEFT AP LATERAL INTERNAL AND EXTERNAL OBLIQUES; Future - ID RIGID WHEELED WALKER ADJ/FIX Primary osteoarthritis of left knee - AMB REFERRAL TO PHYSICAL THERAPY - AMB [facility] SURGERY COMMUNICATION ORDER - ID RIGID WHEELED WALKER ADJ/FIX PLAN: Recommend conservative treatment Discussed treatment options Right knee OA, severe Tolerable overall today Left knee OA, severe Affects her QOL Tried rest, ice, nsaids, injections, PT exercises. No lasting relief. Patient would likely benefit from surgical intervention. We will proceed with a left total knee arthroplasty. She does have severe osteoporosis. We will consider this at the time of surgery. She takes Xarelto 20mg daily She had a blood clot in her 30s She works for [employer] from home RISKS OF SURGERY: An extensive conversation was held with the patient and/or family regarding the risks, benefits, potential complication and reasonable expectations of the planned procedure. Informed verbal consent was given under no distress. We had ample opportunities for questions regarding the usual outcomes. Risks discussed, but not limited to the following, include possible: bleeding, infection, damage to blood vessels and/or nerves, blood clots, anesthesia complications, loss of reduction (if fracture), re-tear or re-injury (if ligament/tendon fixed), hardware breakage or failure (if used), need for additional surgery, post- operative stiffness, looseness, leg length discrepancy, and dislocation (where applicable). In addition, in rare cases the patient may have loss of a limb or even . Where applicable, we discussed bearing surfaces, fixation, implant materials, and expected longevity. No guarantee of any particular results were given. The patient voiced understanding that in some cases surgery can make them worse. In spite of this, the patient and/or family desired that we proceedwith the operation and expressed clear understanding of these risks. 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 No problems with anesthesia DME Summary No orders found for display Please note that this salvage cutter was created using voice recognition software. Any errors are unintentional and may be due to voice recognition salvage cutter. Parts of this note may have been created by a chart review, combined by taking my own patient history. The patient was physically seen and examined by myself, including a personal review of images, tests, and formation of the impression and plan. If questions occur please do not hesitate to call our office. [1] Social History Tobacco Use Smoking Status Not on file Smokeless Tobacco Not on file documented in this encounter Miscellaneous Notes * Addendum Note - Cristobal Reese MA - 07/13/2025 3:15 PM ESTAddended by: CRISTOBAL REESE on: 07/13/2025 04:35 PM Modules accepted: Orders documented in this encounter Plan of Treatment Upcoming Encounters Date Type Department Care Team (Late st Contact Info) Description 10/27/2025 3:45 PM EST Office Visit [facility] [address] [place] [address] Ladonna Saldana NP [address] [place] [address] Scheduled Orders Name Type Priority Associated Diagnoses Orde r Schedule ID RIGID WHEELED WALKER ADJ/FIX ID Charge Routine Left knee pain, unspecified chronicity Primary osteoarthritis of left knee Ordered: 07/13/2025 Scheduled Referrals Name Type Priority Associated Diagnoses Orde r Schedule AMB REFERRAL TO PHYSICAL THERAPY Outpatient Referral Routine Primary osteoarthritis of left knee Ordered: 07/13/2025 documented as of this encounter Results * XR KNEE LEFT AP LATERAL INTERNAL AND EXTERNAL OBLIQUES (07/13/2025 4:02 PM EST) Xavier Lal - 07/13/2025 4:03 PM EST Please see physician's note from office encounter for x-ray imaging result us Jalil Hall MD IMG DIAGNOSTIC IMAGI NG ORDERABLES Final Result documented in this encounter Visit Diagnoses Diagnosis Left knee pain, unspecified chronicity- Primary Primary osteoarthritis of left knee Primary localized osteoarthrosis, lower leg Left knee pain, unspecified chronicity documented in this encounter Historical Medications * This list may reflect changes made after this encounter. esomeprazole (NEXIUM) 40 mg Oral Capsule, Delayed Release(E.C.) Take 40 mg by mouth every morning (before breakfast). 10/29/2014 fUROsemide (LASIX) 40 mg Oral Tablet Take 40 mg by mouth daily. 01/05/2025 LEVOthyroxine (SYNTHROID) 50 mcg Oral Tablet Take 50 mcg by mouth daily. 01/05/2025 metoprolol (LOPRESSOR) 50 mg Oral Tablet Take 50 mg by mouth 2 times daily. 01/05/2025 nitrofurantoin, macrocrystal-mon ohydrate, (MACROBID) 100 mg Oral Capsule Take 100 mg by mouth 2 times daily. for 7 days 06/30/2025 nystatin (MYCOSTATIN) Top Cream APPLY TOPICALLY TO AFFECTED AREA(S) 3 TIMES DAILY 06/30/2025 phenazopyridine (PYRIDIUM) 200 mg Oral Tablet Take 200 mg by mouth 3 times daily. 06/30/2025 potassium chloride (KLOR-CON M) 20 mEq Oral Tab Sust.Rel. Particle/Crystal Take 20 mEq by mouth. 03/29/2025 rivaroxaban (XARELTO) 20 mg Oral Tablet Take 20 mg by mouth daily. 04/28/2025 Turmeric, Bulk, 95 % Misc Powder Take by mouth. B-complex with vitamin C Oral Tablet Take 1 Tablet by mouth daily. added in this encounter Orders Nursing Count Last Ordered Date First Orde red Date AMB OC SURGERY COMMUNICATION ORDER 1 2024 documented in this encounter
--- OUTSIDE RECORDS SUMMARY | 2025-07-13 15:45 | XMS_ITS | Encounter Summary ---
Author Organization [facility] Address [address] [place] [address] Care Team Providers Care Industrial Diamond Polisher Name Role Phone Unavailable Primary Care Provider Unavailabl e Encounter Details Date Type Department Care Team (Late Contact Info) Description 07/13/2025 3:45 PM EST Ancillary [facility] [address] [place] [address] Jalil Hall MD [address] [place] [address] Left knee pain, unspecified chronicity Social History Tobacco Use Types Packs/Day Years Used Date Smoking Tobacco: Never Assessed Comments Unknown Sex and Gender Information Value Date Recorded Sex Assigned at Not on file Legal Sex Female 3:46 PM EDT Gender Identity Not on file Sexual Orientation Not on file documented as of this encounter Plan of Treatment Upcoming Encounters Date Type Department Care Team (Late Contact Info) Description 10/27/2025 3:45 PM EST [facility] [address] [place] [address] Ladonna Saldana NP [address] [place] [address] documented as of this encounter Procedures Procedure Name Priority Date/Time Associated Diagnosis Comments XR KNEE LEFT AP LATERAL INTERNAL AND EXTERNAL OBLIQUES Routine 07/13/2025 4:02 PM EST Left knee pain, unspecified chronicity documented in this encounter Results * XR KNEE LEFT AP LATERAL INTERNAL AND EXTERNAL OBLIQUES (07/13/2025 4:02 PM EST) Narrative Genericuser, Audit - 07/13/2025 4:03 PM EST Please see physician's note from office encounter for x-ray imaging result us Jalil Hall MD IMG DIAGNOSTIC IMAGI NG ORDERABLES Final Result documented in this encounter Visit Diagnoses Diagnosis Left knee pain, unspecified chronicity documented in this encounter
--- OUTSIDE RECORDS SUMMARY | 2025-07-26 13:13 | XMS_ITS | Encounter Summary ---
Author Organization [facility] Address [facility] [place] [address] Phone Care Team Providers Care Inspector Hairspring Name Role Phone Keyur North MD Unavailable Unavaila ble Leandra Gonzales MD Primary Care Provider [phone] Leandra Gonzales MD Unavailable Reason for Visit * Reason Onset Date Comments Results 02/28/2024 Encounter Details Date Type Department Care Team (Late st Contact Info) Description 02/28/20[address] [facility] [address] [place] [address] Leandra Gonzales MD [address] [place] [address] Social History Tobacco Use Types [...] car, in a tent, in an overnight jail, or temporarily in someone else's home (i.e. [...] car, in a tent, in an overnight jail, or temporarily in someone else's home (i.e. [...] - 02/28/2024 2:06 PM EDT Patient calling [phone] (home) Read the following message to the [...] office or use the walk-in lab at [facility]. You do have some bacteria in [...] Description 09/17/2025 2:00 PM EST Office Visit [facility] [place] [facility] [address] [place] [address] [place] [address] [place] [address] documented as of this encounter Visit Diagnoses Not on filedocumented in this encounter Additional Health Concerns Assessment Noted Time PHQ-2 Depression Total Score: 0 02/26/20 24 2:48 PM EDT documented as of this encounter Care Teams Inspector Hairspring Relationship Specialty Start Date End Date Leandra Gonzales MD PCP - General Internal Medicine 06/30/18 Leandra Gonzales MD [address] [place] [address] PCP - Jacek DE GUZMAN Attributed Physician 02/01/20 04/01/25 Keyur North MD Attending Physician Hand Surgery 12/17/17 documented as of this encounter
--- OUTSIDE RECORDS SUMMARY | 2025-07-26 13:13 | XMS_ITS | Encounter Summary ---
Author Organization [facility] Address [facility] [address] Phone Care Team Providers Care Food Management Aide Name Role Phone Keyur North MD Unavailable Unavaila ble Leandra Gonzales MD Primary Care Provider [phone] Leandra Gonzales MD Unavailable Encounter Details Date Type Department Care Team ([facility] st Contact Info) Description 07/14/2024 Collaborative Link Encounter [facility] [address] [place], [place] [phone] Social History Tobacco Use Types Packs/Day Years [...] car, in a tent, in an overnight fpc, or temporarily in someone else's home (i.e. [...] car, in a tent, in an overnight fpc, or temporarily in someone else's home (i.e. [...] [facility] [place] [facility] [address] [facility] [address] [place] [address] [place] [address] [place] [address] documented as of this encounter Visit Diagnoses Not on filedocumented in this encounter Additional Health Concerns Assessment Noted Time PHQ-2 Depression Total Score: 0 02/26/20 24 2:48 PM EDT documented as of this encounter Care Teams Food Management Aide Relationship Specialty Start Date End Date Leandra Gonzales MD PCP - General Internal Medicine 06/30/18 Leandra Gonzales MD [address] [place] [address] PCP - Jacek DE GUZMAN Attributed Physician 02/01/20 04/01/25 Keyur North MD Attending Physician Hand Surgery 12/17/17 documented as of this encounter
--- OUTSIDE RECORDS SUMMARY | 2025-07-26 13:13 | XMS_ITS | Encounter Summary ---
Author Organization [facility] Address [facility] [place] [address] Phone Care Team Providers Care Hole Filler Name Role Phone Keyur North MD Unavailable Unavaila ble Leandra Gonzales MD Primary Care Provider [phone] Leandra Gonzales MD Unavailable Encounter Details Date Type Department Care Team (Late st Contact Info) Description 01/01/2022 Collaborative Link Encounter [facility] [address] [place], [place] [phone] Social History Tobacco Use Types Packs/Day Years [...] Assessment Author No 04/18/2018 7:10 AM EDT [place], Chichi A, Registered Nurse * Do you [...] Description 09/17/2025 2:00 PM EST Office Visit [facility] [place] [facility] [address] [facility] [address] [place] [address] [place] [address] [place] [address] documented as of this encounter Visit Diagnoses Not on filedocumented in this encounter Care Teams Hole Filler Relationship Specialty Start Date End Date Leandra Gonzales MD PCP - General Internal Medicine 06/30/18 Leandra Gonzales MD [address] [place] [address] PCP - Jacek DE GUZMAN Attributed Physician 02/01/20 04/01/25 Keyur North MD Attending Physician Hand Surgery 12/17/17 documented as of this encounter
--- OUTSIDE RECORDS SUMMARY | 2025-07-26 13:13 | XMS_ITS | Encounter Summary ---
Author Organization [facility] Address [facility] [place] [address] Phone Care Team Providers Care Cane Weigher Name Role Phone Keyur North MD Unavailable Unavaila ble Leandra Gonzales MD Primary Care Provider [phone] Leandra Gonzales MD Unavailable Encounter Details Date Type Department Care Team ([facility] st Contact Info) Description 06/11/2022 Collaborative Link Encounter [facility] [address] [place] [phone] Social History Tobacco Use Types Packs/Day Years [...] for colonoscopy ??? please have them contact [facility] at [phone] to schedule. If patient has completed colonoscopy, please obtain provider/facility information and send telephone encounter with information to Care Gaps [facility]. documented in this encounter Plan of Treatment Upcoming Encounters Date Type Department Care Team (Late st Contact Info) Description 09/17/2025 2:00 PM EST Office Visit [facility] Heart & [facility]ascular [place] [facility] [address] [facility] [address] [place] [address] [place] [address] [place] [address] documented as of this encounter Visit Diagnoses Not on filedocumented in this encounter Care Teams Cane Weigher Relationship Specialty Start Date End Date Leandra Gonzales MD PCP - General Internal Medicine 06/30/18 Leandra Gonzales MD [address] [place] [address] PCP - Jacek DE GUZMAN Attributed Physician 02/01/20 04/01/25 Keyur North MD Attending Physician Hand Surgery 12/17/17 documented as of this encounter
--- OUTSIDE RECORDS SUMMARY | 2025-07-26 13:13 | XMS_ITS | Encounter Summary ---
Author Organization [facility] Address [address] [place] [address] Phone Care Team Providers Care Vibrating Screed Operator Name Role Phone Keyur North MD Unavailable Unavaila ble Leadnra Gonzales MD Primary Care Provider [phone] Leandra Gonzales MD Unavailable Encounter Details Date Type Department Care Team (Late st Contact Info) Description 06/14/2023 SCAN [facility] V[facility] [place] [address] [place] [address] Social History Tobacco Use Types [...] 2:00 PM EST Office Visit [facility] [place] [facility] [address] [place] [address] [place] [address] [place] [address] documented as of this [...] documented as of this encounter Care Teams Vibrating Screed Operator Relationship Specialty Start Date End Date Leandra Gonzales MD PCP - General Internal Medicine 06/30/18 Leandra Gonzales MD [address] [place] [address] PCP - Jacek DE GUZMAN Attributed Physician 02/01/20 04/01/25 Keyur North MD Attending Physician Hand Surgery 12/17/17 documented as of this encounter
--- OUTSIDE RECORDS SUMMARY | 2025-07-26 13:13 | XMS_ITS | Encounter Summary ---
Author Organization [facility] Address [facility] [place] [address] Phone Care Team Providers Care Dredge Boat Engineer Name Role Phone Keyur North MD [facility] Unavaila [facility] Leandra Gonzales MD Primary Care Provider [phone] Reason for Visit * Reason Comments Refill Request Encounter Details Date Type Department Care Team (Late st Contact Info) Description 07/21/2025 Refill [facility] [address] [place] [address] Leandra Gonzales MD [address] [place] [address] Left leg swelling Social History [...] car, in a tent, in an overnight prison, or temporarily in someone else's home (i.e. [...] car, in a tent, in an overnight prison, or temporarily in someone else's home (i.e. [...] 09/17/2025 2:00 PM EST Office Visit [facility] Heart & Vascular [place] [facility] [address] [place] [address] [place] [address] [place] [address] documented as of this encounter Goals Goal [...] documented as of this encounter Care Teams Dredge Boat Engineer Relationship Specialty Start Date End Date Leandra Gonzales MD PCP - General Internal Medicine 06/30/18 Keyur North MD Attending Physician Hand Surgery 12/17/17 documented as of this encounter
--- OUTSIDE RECORDS SUMMARY | 2025-07-26 13:13 | XMS_ITS | Encounter Summary ---
Author Organization [facility] Address [address] [place] [address] [place] [address] Phone Care Team Providers Care Tool Grinder Set Up Operator Gear Name Role Phone Keyur North MD [facility] Leandra Gonzales MD Primary Care Provider [phone] Reason for Visit * Reason Comments Refill Request Encounter Details Date Type Department Care Team (Late st Contact Info) Description 07/10/2025 [facility]ill [facility] [address] [place] [address] Leandra Gonzales MD [address] [place] [address] Social History Tobacco Use Types [...] 09/17/2025 2:00 PM EST Office [facility] [place] [facility] [address] [place] [address] [place] [address] [place] [address] documented as of this [...] documented as of this encounter Care Teams Tool Grinder Set Up Operator Gear Relationship Specialty Start Date End Date Leandra Gonzales MD PCP - General Internal Medicine 06/30/18 Keyur North MD Attending Physician Hand Surgery 12/17/17 documented as of this encounter
--- OUTSIDE RECORDS SUMMARY | 2025-07-26 13:13 | XMS_ITS | Encounter Summary ---
Author Organization [facility] Address [address] [place] [address] Phone Care Team Providers Care Director Of Convention Services Name Role Phone Keyur North MD, Sarah MD Primary Care Provider [phone] Reason for Visit * Reason Comments Refill Request Encounter Details Date Type Department Care Team (Late st Contact Info) Description [address] [facility] [place] [facility] [address] [place] [address] [place] [address] [place] [address] Permanent atrial fibrillation Social History [...] car, in a tent, in an overnight fdc, or temporarily in someone else's home (i.e. [...] car, in a tent, in an overnight fdc, or temporarily in someone else's home (i.e. [...] TSH3G , DIG Preferred Pharmacy: [id number] [place], [place] - [address] [facility] [phone] [id number] [address] [place] [address] AT [facility] [phone] [facility] [address] [phone] Oswaldo Duran MA documented in this encounter Plan of Treatment Upcoming Encounters Date Type Department Care Team (Late st Contact Info) Description 09/17/2025 2:00 PM EST Office Visit [facility] [place] - [facility] [address] [place] [address] [place] [address] [place] [address] documented as of this encounter [...] of this encounter Care Teams Director Of Convention Services Relationship Specialty Start Date End Date Leandra Gonzales MD PCP - General Internal Medicine 06/30/18 Keyur North MD Attending Physician Hand Surgery 12/17/17 documented as of this encounter
--- OUTSIDE RECORDS SUMMARY | 2025-07-26 13:14 | XMS_ITS | Encounter Summary ---
Author Organization [facility] Address [facility] [place] [address] Phone Care Team Providers Care Supervisor Propellant Charge Loading Name Role Phone Keyur North MD Unavailable Unavaila ble Leandra Gonzales MD Primary Care Provider [phone] Leandra Gonzales MD Unavailable Encounter Details Date Type Department Care Team ([facility] st Contact Info) Description 10/19/2022 Collaborative Link Encounter [facility] [address] [place] [phone] Social History Tobacco Use Types Packs/Day Years [...] 2:00 PM EST Office Visit [facility] [place] [facility] [address] [facility] [address] [place] [address] [place] [address] [place] [address] documented as of this encounter Visit Diagnoses Not on filedocumented in this encounter Care Teams Supervisor Propellant Charge Loading Relationship Specialty Start Date End Date Leandra Gonzales MD PCP - General Internal Medicine 06/30/18 Leandra Gonzales MD [address] [place] [address] PCP - Jacek DE GUZMAN Attributed Physician 02/01/20 04/01/25 Keyur North MD Attending Physician Hand Surgery 12/17/17 documented as of this encounter
--- OUTSIDE RECORDS SUMMARY | 2025-07-26 13:14 | XMS_ITS | Clinical Summary ---
Author Organization [facility] Phone Care Team Providers Care Research Lab Assistant Name Role Phone Unavailable Primary Care Provider [...] Description 07/13/2025 3:45 PM EST Ancillary Procedure [facility] [employer] [address] [place] [address] Jalil Hall MD Left knee pain, unspecified chronicity 07/13/2025 3:15 PM EST Office Visit [facility] [employer] [address] [place] [address] Jalil Hall MD Left knee pain, unspecified [...] Description 10/27/2025 3:45 PM EST [facility] [address] [place] [address] Ladonna Saldana, [address] [place] [address] Health Maintenance Due Date Last Done Comments [...]
--- OUTSIDE RECORDS SUMMARY | 2025-07-26 13:14 | XMS_ITS | Encounter Summary ---
Author Organization [facility] Address [address] [place] [address] Phone Care Team Providers Care Primary Clinician Name Role Phone Keyur North MD Unavailable Unavaila ble Leandra Gonzales MD Primary Care Provider [phone] Leandra Gonzales MD Unavailable Encounter Details Date Type Department Care Team ([facility] st Contact Info) Description 08/07/2022 Collaborative Link Encounter [facility] [address] [place], [place] [phone] Social History Tobacco Use Types Packs/Day Years [...] Assessment Author No 04/18/2018 7:10 AM EDT Bolton, Chichi A, Registered Nurse * Do you [...] Description 09/17/2025 2:00 PM EST Office Visit [facility] Heart & Vascular [place] - [facility] [address] [place] [address] [place] [address] [place] [address] documented as of this encounter Visit Diagnoses Not on filedocumented in this encounter Care Teams Primary Clinician Relationship Specialty Start Date End Date Leandra Gonzales MD PCP - General Internal Medicine 06/30/18 Leandra Gonzales MD [address] [place] [address] PCP - Jacek DE GUZMAN Attributed Physician 02/01/20 04/01/25 Keyur North MD Attending Physician Hand Surgery 12/17/17 documented as of this encounter
--- OUTSIDE RECORDS SUMMARY | 2025-07-26 13:14 | XMS_ITS | Clinical Summary ---
Author Organization [facility] Address [address] [place] [address] Phone Care Team Providers Care Multi Slide Machine Tender Name Role Phone Keyur North MD, Sarah MD Primary Care Provider [phone] Allergies No known active allergies Medications * [...] 10/29/2014 015 Atrial fibrillation 10/29/2014 12/01/19 15 intermediate current use of ant icoagulant therapy 10/29/2014 04/11/2018 Paroxysmal atrial fibrillation 10/29/2014 11/30/2014 Encounters Date Type Department Care Team Description 2025 Refill [facility] Heart & [facility] [place] [facility] [address] [place] [address] Clifford Obrien MD Permanent atrial fibrillation 07/21/2025 Refill [facility] [address] [place] [address] Leandra Gonzales MD Left leg swelling 07/10/2025 Refill [facility] [address] [place] [address] Leandra Gonzales MD 04/28/2025 Refill [facility] [place] [facility] [address] [place] [address] Adriana Saleh, Registered Nurse Permanent atrial fibrillation [...] 2:00 PM EST Office Visit [facility] [place] [facility] [address] [place] [address] [place] [address] [place] [address] Health Maintenance Due Date Last [...] EDT) HEPATITIS A AB IGM NONREACTIVE NONREACTIVE [facility] HEP B CORE IGM NONREACTIVE NONREACTIVE [facility] RECE[facility] HEP B SURFACE AG NONREACTIVE NONREACTIVE [facility] Comment: (NOTE) HBsAg not detected. Does not exclude possibility of exposure to HBV. HEPATITIS C AB NONREACTIVE NONREACTIVE [facility] RE[facility] Comment: (NOTE) No antibodies to HCV detected. Does not exclude possibility of exposure to HCV. Test performed using [employer] electrochemiluminescence immunassay (ECLIA). Tested at: [place] [address] Whole Blood 12/30/2024 12:0 1 PM EDT 12/30/2024 12:06 PM EDT us Leandra Gonzales MD LAB BLOOD ORDERABLES Final Resul t [facility] [address] [place] [address] [facility] RECEIV[facility] [address] [place] [address] * DXA BONE DENSITY (10/03/2023 3:18 PM [...] the content of this report, please contact [facility] radiology by calling [phone] DXA scanner: [employer] ([id number]). LSC in g/cm2 at 95% confidence: Lumbar [...] about the content of this report, pleasecontact [facility] radiology by calling [phone] DXA scanner: [employer] W ([id number]). LSC in g/cm2 at 95%confidence: Lumbar spine [...] regarding pharmacologic therapy. us Leandra Gonzales MD [facility] Final Result * [facility] SCR BILAT (10/03/2023 2:58 PM EST) Anatomical [...] appointment, or scheduling can be reached at [phone]. RISK ASSESSMENT: A preliminary breast cancer risk assessment was conducted as part of the patient?s screening mammogram. Patients with a preliminarily elevated screening score who are interested in further information are encouraged to contact our High Risk Navigator at [phone], or provider can place a referral to the high risk breast program, [id number]. Patient's lifetime Lyric model risk: 5.61% (20% [...] nonsurgical architectural distortion identified. Leandra Gonzales MD [facility] Final Result from Last 3 Months or Most Recently Relevant to Health Maintenance Additional Health Concerns Active Problems Noted Date Diagnosed Date MYC COLONOSCOPY PREP EDUCATION 08/11/2024 MYC COLONOSCOPY PREP EDUCATION 08/11/2024 Insurance [id number] [id number] Care Teams Multi Slide Machine Tender Relationship Specialty Start Date End Date Leandra Gonzales MD PCP - General Internal Medicine 06/30/18 Keyur North MD Attending Physician Hand Surgery 12/17/17
== END 2025-07-23 23:59 | disposition home or self-care (01) ==
LOC: LAB.DROPOF 07-26 13:03
PROVIDERS: PCP Family Medicine; Visit Provider Nurse Practitioner Family
DX: R30.0 Dysuria (principal)
CPT/HCPCS: 87086; 87088; 87186

== ENCOUNTER 2025-07-26 10:47 | Outpatient (CLI) | payer MEDICARE, SELFPAY ==
--- OUTSIDE RECORDS SUMMARY | 2020-03-25 10:15 | XMS_ITS | Continuity of Care Document ---
Author Organization Dhruv Merlos [facility] Address [facility]CCUPATIONS TE[facility] utions [address] [place] [address] Phone Care Team Providers Care Software Test And Validation Engineer Name Role Phone Geeta Fermin DDS Unavailable Unavailable Allergies, Adverse Reactions, Alerts Substance Reaction Status Criticality No Known Drug Allergies Active No I nformation Medications Medication Instructions Dosage Effective Dates (start - stop) Status Comments Nexium 40 mg capsule,delayed release take 1 capsule (40MG) by ORAL route every day - Active Ordered thru patient assistance warfarin 3 mg Tab One tablet on Saturday and Saturday at 4PM. 3 MG - Active warfarin 4 mg tablet One tablet daily Saturday thru Saturday at 4 PM. - Active potassium chloride SR 20 mEq Tab, Particles/Crystals take 1 tablet bid (20MEQ) by ORAL route every day with food for order needy meds - Active 340 B Lotrisone 1 %-0.05 % Topical Cream Apply thinly to affected area twice a day. - Active Dispense 45gm tube 340 B Feosol 325 mg (65 mg Iron) Tab take 1 tablet (325MG) by ORAL route 2 times every day - Active Procedures Procedure Date Prophylaxis-Adult Treatment Plan Completed Comprehensive Oral Eval-New Or Establish ed Patient Panoramic Radiographic Image Bitewings-Four Radiographic Images OFFICE/OUTPATIENT VISIT, EST PROTHROMBIN TIME CAPILLARY BLOOD DRAW OFFICE/OUTPATIENT VISIT, EST PROTHROMBIN TIME URINALYSIS, AUTO, W/O SCOPE CAPILLARY BLOOD DRAW SPECIMEN HANDLING OFFICE/OUTPATIENT VISIT, EST PROTHROMBIN TIME URINALYSIS, AUTO, W/O SCOPE CAPILLARY BLOOD DRAW SPECIMEN HANDLING Nurse Visit / Less 7 Days CAPILLARY BLOOD DRAW PROTHROMBIN TIME OFFICE/OUTPATIENT VISIT, EST CAPILLARY BLOOD DRAW PROTHROMBIN TIME Nurse Visit / Less 7 Days CAPILLARY BLOOD DRAW PROTHROMBIN TIME OFFICE/OUTPATIENT VISIT, EST OFFICE/OUTPATIENT VISIT, EST CAPILLARY BLOOD DRAW SPECIMEN HANDLING PROTHROMBIN TIME URINALYSIS, AUTO, W/O SCOPE OFFICE/OUTPATIENT VISIT, EST OFFICE/OUTPATIENT VISIT, EST OFFICE/OUTPATIENT VISIT, EST PROTHROMBIN TIME CAPILLARY BLOOD DRAW Nurse Visit / Less 7 Days PROTHROMBIN TIME CAPILLARY BLOOD DRAW Nurse Visit Injection ROUTINE VENIPUNCTURE PROTHROMBIN TIME OFFICE/OUTPATIENT VISIT, EST Nurse Visit [facility] No PROTHROMBIN TIME Nurse Visit [facility] Oc PROTHROMBIN TIME Nurse Visit Injection PROTHROMBIN TIME Nurse Visit [facility] Se p PROTHROMBIN TIME OFFICE/OUTPATIENT VISIT, EST OFFICE/OUTPATIENT VISIT, EST OFFICE/OUTPATIENT VISIT, EST OFFICE/OUTPATIENT VISIT, NEW Advance Directives Directive Yes / No Effective Date File Name No Information Encounters Encounter Description Practice Location Reason(s) For Visit Diagnoses Date Provider Providers Copied on Encounter [facility] [address], [place], [address], [place] tel: [phone] [facility] No Information 0 Zander Connor. [address], [id number] 0, [place], [place], [id number], [place]. tel:[phone] Dhruv Merlos [facility] Luis Manuel moody, [facility] [address], [place], [address], [place] tel: [phone] [facility] Encounter for dental exam and cleaning w/o abnormal findings 0 Rittman Geeta. [address], [id number] 0, [place], [place], [id number], [place]. tel:[phone] Dhruv Merlos [facility] Luis Manuel moody, [facility] [address], [place], [address], [place] tel: [phone] [facility] No Information 4 [facility]. [address] [facility] [address], [id number] 0, [place], [address], [place]. tel:[phone] OFFICE/OUTPA TIENT VISIT, EST Dhruv Merlos [facility] Luis Manuel moody, [facility] [address], [place], [address], [place] tel: [phone] [facility] physical (chief complaint) Hypercoagulable stateAnxietyGERD (gastroesophageal reflux disease)Elevated BP 3 [facility]. [address] [facility] [address], [id number] 0, [place], [place], [id number], [place]. tel:[phone] OFFICE/OUTPA TIENT VISIT, DONTA Merlos [facility] Luis Manuel moody, [facility] [address], [place], [address], [place] tel:[phone] [facility] UTI (chief complaint) Dysuria 3 [facility]. [address] [facility] [address], [id number] 0, [place], [facility], [place]. tel:[phone] OFFICE/OUTPA TIENT VISIT, DONTA Merlos [facility] [facility] [place], [facility] [address] [place] [address], [place], [facility], [place] tel:[phone] Sunil Banuelos [facility] PT/INR (chief complaint) Burning with urinationPrimary hypercoagulable state 3 [facility]. [address] [facility] [address], [id number] 0, [place], [facility], [place]. tel:[phone] Nurse Visit / Less 7 Days Dhruv [facility], [facility] [address] [place] [address], [facility], [place] tel:[phone] Sunil Banuelos [facility] lab wk (chief complaint) No Information 2 [facility]. [address] [facility] A, [id number] [place], [facility], [place]. tel:[phone] OFFICE/OUTPA TIENT VISIT, DONTA [facility] [place], [facility] [address] [place] [address], [facility], [place] tel:[phone] Sunil Banuelos [facility] sinus symptoms (acute) (chief complaint) PT/INR (chief complaint) Hypercoagulable stateAcute sinusitis 2 [facility]. [address] [facility], [id number] 0, [place], [address], [place]. tel:[phone] Nurse Visit / Less 7 Days [facility] , [facility] [address] [place] [address], [facility], [place] tel:[phone] Sunil Banuelos [facility] pro time (chief complaint) No Information 2 [facility]. [address] [facility] [address], [id number] 0, [place], [facility], [place]. tel:[phone] OFFICE/OUTPA TIENT VISIT, DONTA Bartlett Appiaraymundo [employer] [facility] , [facility] [address], [facility], [place] [phone] Sunil Banuelos [facility] F/U UTI (chief complaint) UTI (lower urinary tract infection)Vaginit is 2 [facility]. [address] [facility] [address], [id number] 0, [place], [facility], [place]. tel:[phone] OFFICE/OUTPA TIENT VISIT, DONTA Merlos [facility] , [facility] [address], [facility], [place] tel:[phone] [facility] UTI (chief complaint) UTI (lower urinary tract infection)Primary hypercoagulable stateGERD (gastroesophageal reflux disease) 2 [facility]. 3 [facility], [id number] 0, [place], [facility], [place]. tel:[phone] OFFICE/OUTPA TIENT VISIT, DONTA BowlesFleep [facility] , [facility] [address], [facility], [place] [phone] Sunil Banuelos [facility] follow up-INR (chief complaint) Primary hypercoagulable stateAnxietyGERD 2 [facility]. 3 [facility], [id number] 0, [place], [facility], [place]. tel:[phone] OFFICE/OUTPA TIENT VISIT, DONTA Bartlett Appiaraymundo [employer] [facility] , [facility] [address], [facility], [place] tel:[phone] [facility] back pain (chief complaint) knee pain (chief complaint) No Information 1 [facility]. [address] [facility] [address], [id number] 0, [place], [facility], [place]. tel:[phone] OFFICE/OUTPA TIENT VISIT, DONTA Bartlett Appiaraymundo [employer] [facility] [place], [facility] [address] [place] [address], [place], [facility], [place] tel: [phone] [facility] PT check (chief complaint) Pt med refill (chief complaint) No Information 1 [facility]. [address] [facility], [id number] 0, [place], [facility], [place]. tel:[phone] Nurse Visit / Less 7 Days Dhruv Merlos [facility] Luis Manuel moody, [facility] [address] [place] [address], [place], [facility], [place] tel: [phone] [facility] No Information 1 [facility]. [address] [facility], [id number] [facility], [place], [facility], [place]. tel: [phone] Nurse Visit Injection Dhruv Merlos [facility] Luis Manuel moody, [facility] [address] [place] [address], [place], [facility], [place] tel: [phone] [facility] pro time (chief complaint) blood work (chief complaint) No Information 1 Markuser Eder. [address] [facility] A, [id number] 0, [place], [place], [id number], [place]. tel:[phone] OFFICE/OUTPA TIENT VISIT, EST Dhruv Merlos [facility] Luis Manuel moody, [facility] [address] [place] [address], [facility], [place] tel: [phone] [facility] No Information 0 [facility]. [address] [facility] [address], [id number] 0, [place], [address], [place]. tel:[phone] Nurse Visit [facility] Ins Dhruv Merlos [facility] Luis Manuel moody, [facility] [address] [place] [address], [place], [facility], [place] tel: [phone] [facility] No Information 0 [facility]. [address] [facility] [address], [id number] 0, [place], [address], [place]. tel:[phone] Nurse Visit Injection Dhruv Merlos [facility] Britneyu [place], [facility] [address] [place] [address], [place], [facility], [place] tel:[phone] [facility] pro time (chief complaint) No Information 0 [facility]. [address] [facility] A, [id number] 0, [place], [facility], [place]. tel:[phone] Nurse Visit [facility] Primary Ins Dhruv Merlos [facility] Britneyu [place], [facility] [address] [place] [address], [place], [facility], [place] tel:[phone] [facility] No Information 0 [facility]. [address] [facility] A, [id number] 0, [place], [facility], [place]. tel:[phone] OFFICE/OUTPA TIENT VISIT, EST Dhruv Merlos [facility] Britneyu [place], [facility] [address] [place] [address], [place], [facility], [place] tel:[phone] [facility] poison maría (chief complaint) No Information 0 [employer] Darlene. [address] [facility], [id number] 0, [place], [address], [place]. tel:[phone] OFFICE/OUTPA TIENT VISIT, EST Dhruv Merlos [facility] Luis Manuel moody, [facility] [address] [place] [address], [place], [facility], [place] tel:[phone] [facility] foot pain (chief complaint) follow up for pro time (chief complaint) Corns and callositiesGERDPr imary hypercoagulable stateInsomnia, OtherAnxiety 0 [place] Darlene. [address] [facility], [id number] 0, [place], [address], [place]. tel:[phone] OFFICE/OUTPA TIENT VISIT, EST Dhruv Merlos [facility] Luis Manuel moody, [facility] [address] [place] [address], [place], [facility], tel:[phone] [facility] No Information Apr-0 9-201 0 [place]eter[place] Darlene. [address], [id number] [address], [facility], . tel:[phone] [facility] [address] [place] [address], tel:[phone] [facility] No Information Oct- 0-201 0 [place]eter[place] Darlene. [address], [id number] [address] [place] [address], . tel:[phone] OFFICE/OUTPA TIENT VISIT, [facility] [address] [place] [address], tel:[phone] [facility] No Information Dec- 7-200 9 [place]eter[place] Darlene. [address] [facility] [address], [id number] [address] [place] [address], . tel:[phone] Family History Family Member Type Diagnosis Age At Onset No Information Payers Payer name Insurance type Covered alliance party ID cassandra tinoco(s) [employer] [id number] Social History Type Description Quantity Date Captured Comments Alcohol Use Details Unknown Caffeine Use Details Unknown Tobacco Use Status No Information Smoking Status Never smoker Sex Female Vital Signs Date / Time: Height Weight BMI Pulse Rate Blood Pressure Temperature Respiratory Rate Body Surface Area Head Circumference Head Circ. Percentile Wt./Maurice. Percentile BMI percentile Pulse Ox Inhaled Ox 2:46 PM 71 /min 120/88 mm[Hg] Chief Complaint And Reason For Visit No Information Reason For Referral Reason For Referral No Information History Of Present Illness Encounter Date Complaint History Of Prese nt Illness No Information Functional Status Date Functional Assessmen t No Information Instructions Date Instruction Additional Infor mation Labs ordered. Recheck BP Related to Elevated BP Follow the prescribed diet. Rela bhavani to Elevated BP Bactrim, DS BID for 7 days Relat ed to Dysuria No caffeine, no inte rcourse for 3 days, water+lemon Related to Dysuria Ans. all questions Related to Dy suria Answered all questions. Related to Burning with urination Continue the same meds, refilled . Related to Burning with urination Cipro Related to Burni ng with urination Assessments Type Assessment Date No Information Patient Care Teams Name Effective Dates (start - stop) Status Members No Information
--- OUTSIDE RECORDS SUMMARY | 2025-05-13 09:55 | XMS_ITS | Continuity of Care Document ---
Author Organization [facility] Address [address] [place] [address] Phone Care Team Providers Care Sausage Stringer Name Role Phone Sudhakar CARTER, Anjel Unavailable Unavailable Allergies, Adverse Reactions, Alerts Substance Reaction Status Criticality No Known Allergies Active No Inform ation Medications Medication Instructions Dosage Effective Dates (start - stop) Status Comments cyclobenzaprine 10 mg tablet take 1 tablet by oral route 3 times every day as needed for muscle spasms 10 MG - Active Medrol (Ramírez) 4 mg tablets in a dose pack take by oral route as directed per package instructions for Pain 0.00 - Active meloxicam 15 mg tablet take 1 tablet by oral route every day 15 MG - Active Procedures Procedure Date Office/outpatient visit,est, mod 2024 X-ray exam of knee, 4+ views Drain Or inject major jointor bursa EUFLEXXA INJ PER DOSE Office/outpatient visit,est, mod 2024 Drain Or inject major jointor bursa EUFLEXXA INJ PER DOSE Drain Or inject major jointor bursa EUFLEXXA INJ PER DOSE Inject foramin, lumb/sacral, single Dexamethasone sodium phos Surgery Prepay Office/outpatient visit,est, mod 2024 Office/outpatient visit,est, mod 2024 Inject foramin, lumb/sacral, single Dexamethasone sodium phos Office/outpatient visit,est, mod 2024 DRAIN/INJ JOINT/BURSA W/US EUFLEXXA INJ PER DOSE DRAIN/INJ JOINT/BURSA W/US EUFLEXXA INJ PER DOSE DRAIN/INJ JOINT/BURSA W/US EUFLEXXA INJ PER DOSE Office/outpatient visit,est, mod 2023 Njx interlaminar lmbr/sac Dexamethasone sodium phos Office/outpatient visit,est, mod 2023 MRI Lumbar Spine wo Contrast Office/outpatient visit,est, low 2023 DRAIN/INJ JOINT/BURSA W/US EUFLEXXA INJ PER DOSE DRAIN/INJ JOINT/BURSA W/US EUFLEXXA INJ PER DOSE DRAIN/INJ JOINT/BURSA W/US EUFLEXXA INJ PER DOSE Office/outpatient visit,est, low 2023 Office/outpatient visit,est, mod 2023 Drain Or inject major jointor bursa Inj Methylpred Acetate 1 MG Office/outpatient visit,new, mod 2023 Drain Or inject major jointor bursa X-ray exam of knee, 4+ views Methylprednisolone 80 MG inj Advance Directives Directive Yes / No Effective Date File Name No Information Encounters Encounter Description Practice Location Reason(s) For Visit Diagnoses Date Provider Providers Copied on Encounter Office/outpa tient visit,est, mod [facility], [address] [facility], [place], [address], [place] tel:[phone] [place] XRAY, LEFT KNEE PAIN, FINISHED EUFLEXXA 03/18 (chief complaint) Unilateral primary osteoarthriti s, left knee 5 Sudhakar Hobbs. [address], [place], [place], [id number], [place]. tel:[phone] Referring Provider: Reyes Cross, [address], [place], [address] . tel:[phone] [facility], [address], [place], [address], [place] tel:[phone] [facility] Unilateral primary osteoarthriti s, left knee 5 Mountain Eder. [address], [place], [place], [id number], [place]. tel:[phone] Referring Provider: Reyes Cross, [address], [place], [address] . tel:[phone] Office/outpa tient visit,est, [facility], [address], [place], [address], [place] tel:[phone] [facility] Radiculopathy , lumbar region 5 Ciro Mattson. [address], [place], [place], [id number], [place]. tel:[phone] Referring Provider: Reyes Cross, [address], [place], [address] . tel:[phone] [facility], [address], [place], [address], [place] tel:[phone] [facility] Unilateral primary osteoarthriti s, left knee 5 Mountain Eder. [address], [place], [place], [id number], [place]. tel:[phone] Referring Provider: Reyes Cross, [address], [place], [address] . tel:[phone] [facility], [facility], [address], [place] tel:[phone] [facility] Unilateral primary osteoarthriti s, left knee 5 Hinojosa Eder. [address] [place], [place], [id number], [place]. tel:[phone] Referring Provider: Reyes Cross, [address], [place], [address] . tel:[phone] [facility], [facility], [address], [place] tel:[phone] [facility] Radiculopathy , lumbar region 5 Ciro Mattson. [address], [place], [place], [id number], [place]. tel:[phone] Referring Provider: Reyes Cross, [address], [place], [address] . tel:[phone] [facility], [facility], [address], [place] tel:[phone] [facility] No Information 5 Ciro Mattson. [address], [place], [place], [id number], [place]. tel:[phone] Referring Provider: Reyes Cross, [address], [place], [address] . tel:[phone] Office/outpa tient visit,est, mod [facility], [facility], [address], [place] tel:[phone] [facility] Radiculopathy , lumbar region 5 Ciro Mattson. [address], [place], [place], [id number], [place]. tel:[phone] Referring Provider: Haleem Patricia N, [address], [place], [address] . tel:[phone] Office/outpa tient visit,est, mod [facility], [address] [place], [address], [place] tel:[phone] [address] Suttonestefanía Victor Radiculopathy , lumbar region Oct- 5 Ciro Mattson. [address], [place], [place], [id number], [place]. tel:[phone] Referring Provider: Reyes Cross, [address], [place], [address] . tel:[phone] [facility], [address] [place] [address], [address], [place] tel:[phone] [place] Other spondylosis with radiculopathy , lumbar region Oct- 5 Ciro Mattson. [address], [place], [place], [id number], [place]. tel:[phone] Referring Provider: Reyes Cross, [address], [place], [address] . tel:[phone] Office/outpa tient visit,est, mod [facility], [address] [place], [address], [place] tel:[phone] [place] Suttonestef[place]ía Victor Radiculopathy , lumbar regionOther spondylosis, lumbar region Oct- 5 Ciro Mattson. [address], [place], [place], [id number], [place]. tel:[phone] Referring Provider: Reyes Cross, [address], [place], [address] . tel:[phone] [facility], [facility], [address], [place] tel:[phone] Unilateral primary osteoarthriti s, left knee 5- 5 Patricia Chambers. [address], [place], [place], [address], [place]. tel:[phone] Referring Provider: Reyes Cross, [address], [place], [address] . tel:[phone] [facility], [facility] [place], [place], [facility], [place] tel:[phone] Ptael Victor Unilateral primary osteoarthriti s, left knee 5 Patricia Chambers. [address], [address], [place], [place], [id number], [place]. tel:[phone] Referring Provider: Reyes Cross, [address], [place], [address] . tel:[phone] [facility], [address] [place] [address], [address], [place] tel:[phone] [place] [facility] Unilateral primary osteoarthriti s, left knee 5 Patricia Chambers. [address], [place], [place], [address], [place]. tel:[phone] Referring Provider: Reyes Cross, [address], [place], [address] . tel:[phone] Office/outpa tient visit,est, mod [facility], [facility], [address], [place] tel:[phone] [place] Wilfred Mendenhall lumbar spine pain (chief complaint) Radiculopathy , lumbar regionOther idiopathic peripheral autonomic neuropathy 4 Ciro Mattson. [address], [place], [place], [id number], [place]. tel:[phone] Referring Provider: Reyes Cross, [address], [place], [address] . tel:[phone] [facility], [address] [place], [address], [place] tel:[phone] Hardin Mend[place]all Other spondylosis with radiculopathy , lumbar region 4 Ciro Mattson. [address], [place], [place], [id number], [place]. tel:[phone] Referring Provider: Reyes Cross, [address], [place], [address] . tel:[phone] Office/outpa tient visit,est, mod [facility], [address] [place], [address], [place] tel:[phone] [facility] lumbar spine pain (chief complaint) Spinal stenosis, lumbar region with neurogenic claudication 4 Ciro Mattson. [address], [place], [place], [id number], [place]. tel:[phone] Referring Provider: Reyes Cross, [address], [place], [address] . tel:[phone] [facility], [facility], [address], [place] tel:[phone] [facility] No Information 4 Patricia Chambers. [address], [place], [place], [id number], [place]. tel:[phone] Referring Provider: Reyes Cross, [address], [place], [address] . tel:[phone] Office/outpa tient visit,est, low [facility], [address] [place], [address], [place] tel:[phone] Rol[address] Victor Other low back pain - 4 Patricia Haleem. [address], [place], [place], [id number], [place]. tel:[phone] Referring Provider: Leandra Dunham, [address] [facility], [place], [address]. tel:[phone] [facility], [facility] [place], [place], [facility], tel:[phone] Suttonestefanía Victor Unilateral primary osteoarthriti s, left knee Jan- 4 Patricia Haleem. [address], [place], [place], [id number], [place]. tel:[phone] Referring Provider: Leandra Dunham, [address] [facility], [place], [address]. tel:[phone] [facility], [facility] [place], [place], [facility], tel:[phone] Suttonestefanía Victor Unilateral primary osteoarthriti s, left knee 4 Patricia Haleem. [address], [place], [place], [id number], [place]. tel:[phone] Referring Provider: Leandra Dunham, [address] [facility], [place], [address]. tel:[phone] [facility], [address] [place] [address], [address], [place] tel:[phone] Suttonestefanía Victor Unilateral primary osteoarthriti s, left knee Jan- 4 Particia Haleem. [address], [place], [place], [id number], [place]. tel:[phone] Referring Provider: Leandra Dunham, [address] [facility], [place], [address]. tel:[phone] Office/outpa tient visit,est, low [facility], [address] [place], [address], [place] tel:[phone] [address] Victor Unilateral primary osteoarthriti s, left knee December- 4 Patricia Chambers. [address], [place], [place], [id number], [place]. tel:[phone] Referring Provider: Leandra Dunham, [address] [facility], [place], [address]. tel:[phone] Office/outpa tient visit,est, mod [facility], [address] [place], [address], [place] tel:[phone] [address] Victor Unilateral primary osteoarthriti s, left knee 4 Mountain Eder. [address] [place], [place], [id number], [place]. tel:[phone] Referring Provider: Leandra Dunham, [address] [facility], [place], [address]. tel:[phone] Office/outpa tient visit,new, mod [facility], [address] [place], [address], [place] tel:[phone] Rol[address] Victor Unilateral primary osteoarthriti s, left knee 4 Mountain Eder. [address] [place], [place], [id number], [place]. tel:[phone] Referring Provider: Leandra Dunham, [address] [facility], [place], [address]. tel:[phone] Family History Family Member Type Diagnosis Age At Onset No Information Payers Payer name Insurance type Covered republican ID cassandra tinoco(s) Jacek Medicare - [id number] Social History Type Description Quantity Date Captured Comments Alcohol Use Details Unknown Caffeine Use Details Unknown Tobacco Use Status No Information Smoking Status No Information Sex Female Vital Signs Date / Time: Height Weight BMI Pulse Rate Blood Pressure Temperature Respiratory Rate Body Surface Area Head Circumference Head Circ. Percentile Wt./Maurice. Percentile BMI percentile Pulse Ox Inhaled Ox 4:08 PM 86.183 kg (190.00 lbs) 7:08 PM 69.00 in 83.915 kg (185.00 lbs) 27.3 2 kg/m eter (2) Chief Complaint And Reason For Visit From encounter dated '05/13/2025 14:55'. XRAY, LEFT KNEE PAIN, FINISHED EUFLEXXA 03/18 (chief complaint). Description: XRAY, LEFT KNEE PAIN, FINISHED EUFLEXXA 03/18/25 Reason For Referral Reason For Referral No Information History Of Present Illness Encounter Date Complaint History Of Prese nt Illness XRAY, LEFT KNEE PAIN , FINISHED EUFLEXXA 03/18 XRAY, LEFT KNEE PAIN, FINISHED EUFLEXXA 03/18/25 lumbar spine pain Severity level is 10. It occurs persistently. Location of pain is lower back. Additional information: Patient here F/U L5-S1 Translaminar KAYE. Patient reports 0% improvement. lumbar spine pain Severity level is 5. The problem is worsening. It occurs persistently. Location of pain is lower back, gluteal area, legs and thighs. Pain is radiated to the left ankle, right ankle, left calf, right calf, left foot, right foot, left thigh, right thigh and left & right buttock. The client describes the pain as an ache, numbness, stabbing and weakness. Symptoms are aggravated by changing positions, daily activities, standing, walking and movement. Symptoms are relieved by exercise, over the counter medication: acetaminophen, pain meds/drugs, stretching and gabapentin. Additional information: Patient here for lumbar pain. Referred by Dr. Gomez. MRI done 04/02/24. Pain started 11/2023. patient does home exercise program. Functional Status Date Functional Assessmen t No Information Instructions Date Instruction Additional Infor mation No Information Assessments Type Assessment Date assessment Unilateral primary osteoarthriti s, left knee Sep-11-2025 Patient Care Teams Name Effective Dates (start - stop) Status Members No Information
--- OUTSIDE RECORDS SUMMARY | 2025-07-13 15:15 | XMS_ITS | Encounter Summary ---
Author Organization [facility] Address [address] [place] [address] Care Team Providers Care Front End Loader Operator Name Role Phone Unavailable Primary Care Provider Unavailabl e Reason for Referral * Surgical (Routine) - Pending Review Specialty Diagnoses / Procedures Referred By Contac t Referred To Contact Diagnoses Primary osteoarthritis of left knee Procedures AMB [place] [address] [place] [address] Phone: tel: fax: Referral ID Status Reason Start Date Expiration Date V isits Requested Visits Authorized [id number] Pending Review 07/13/2025 07/13/2026 1 1 * Physical Therapy (Routine) - Pending Review Specialty Diagnoses / Procedures Referred By Esa lopez Referred To Contact Physical Therapy Diagnoses Primary osteoarthritis [place] [address] [place] [address] Phone: tel: fax: Referral ID Status Reason Start Date Expiration Date V isits Requested Visits Authorized [id number] Pending Review 07/13/2025 07/13/2026 1 1 Question [...] Description 07/13/2025 3:15 PM EST Office Visit [facility] Farm Technician [address] [place], [place] [id number] Jalil Hall MD [address] [place] [address] Left knee pain, unspecified chronicity [...] from the original note were not included. [address] [phone] [place], [place] [phone] [place], [place] Marley López 1955 Chief Complaint Patient [...] LATERAL INTERNAL AND EXTERNAL OBLIQUES; Future - MI RIGID WHEELED WALKER ADJ/FIX Primary osteoarthritis of left knee - AMB REFERRAL TO PHYSICAL THERAPY - AMB OC SURGERY COMMUNICATION ORDER - MI RIGID WHEELED WALKER ADJ/FIX PLAN: Recommend conservative [...] clot in her 30s She works for [employer] from home RISKS OF SURGERY: An extensive [...] 20mg Q day resume No metal allergies Viola for PT Walker today Family/friends can help at home Medical considerations: She wakes up mean, kicked nurses in the past Was placed in a protective bed. No problems with anesthesia DME Summary No orders found for display Please note that this weaving instructor was created using voice recognition software. Any errors are unintentional and may be due to voice recognition weaving instructor. Parts of this note may have been [...] 10/27/2025 3:45 PM EST Office Visit [facility] [address] [place] [address] Ladonna Saldana NP [address] [place] [address] Scheduled Orders Name Type Priority Associated Diagnoses Orde r Schedule MI RIGID WHEELED WALKER ADJ/FIX MI Charge Routine Left knee pain, unspecified chronicity [...]
--- OUTSIDE RECORDS SUMMARY | 2025-07-13 15:45 | XMS_ITS | Encounter Summary ---
Author Organization [facility] Address [address] [place] [address] Care Team Providers Care Sewing Machines Salesperson Name Role Phone Unavailable Primary Care Provider Unavailabl e Encounter Details Date Type Department Care Team (Late Contact Info) Description 07/13/2025 3:45 PM EST Ancillary [facility] [address] [place] [address] Jalil Hall MD [address] [place] [address] Left knee pain, unspecified chronicity Social History [...] Description 10/27/2025 3:45 PM EST [facility] [address] [place] [address] Ladonna Saldana NP [address] [place] [address] documented as of this encounter Procedures Procedure [...]
--- OUTSIDE RECORDS SUMMARY | 2025-07-26 11:10 | XMS_ITS | Encounter Summary ---
Author Organization [facility] Address [facility] [place] [address] Phone Care Team Providers Care Fuel Management Handler Name Role Phone Keyur North MD Unavailable Unavaila ble Leandra Gonzales MD Primary Care Provider [phone] Leandra Gonzales MD Unavailable Reason for Visit * Reason Onset Date Comments Results 02/28/2024 Encounter Details Date Type Department Care Team (Late st Contact Info) Description 02/28/2024 Telephone [facility] [address] [place] [address] Leandra Gonzales MD [address] [place] [address] Social History Tobacco Use Types Packs/Day Years [...] car, in a tent, in an overnight [place] health care facility, or temporarily in someone else's home (i.e. [...] car, in a tent, in an overnight [place] health care facility, or temporarily in someone else's home (i.e. [...] - 02/28/2024 2:06 PM EDT Patient calling [phone] (home) Read the following message to the [...] office or use the walk-in lab at [facility]. You do have some bacteria in the [...] 2:00 PM EST Office Visit [facility] [place] [facility] [address] [place] [address] [place] [address] [place] [address] documented as of this encounter Visit Diagnoses Not on filedocumented in this encounter Additional Health Concerns Assessment Noted Time PHQ-2 Depression Total Score: 0 02/26/20 24 2:48 PM EDT documented as of this encounter Care Teams Fuel Management Handler Relationship Specialty Start Date End Date Leandra Gonzales MD PCP - General Internal Medicine 06/30/18 Leandra Gonzales MD [address] [place] [address] PCP - Jacek DE GUZMAN Attributed Physician 02/01/20 04/01/25 Keyur North MD Attending Physician Hand Surgery 12/17/17 documented as of this encounter
--- OUTSIDE RECORDS SUMMARY | 2025-07-26 11:12 | XMS_ITS | Encounter Summary ---
Author Organization [facility] Address [address] [place] [address] Phone Care Team Providers Care Dot Compliance Coordinator Name Role Phone Keyur North MD Unavailable Unavaila ble Leandra Gonzales MD Primary Care Provider [phone] Leandra Gonzales MD Unavailable Encounter Details Date Type Department Care Team (Late st Contact Info) Description 06/14/2023 SCAN [facility] [address] [place] [address] Social History Tobacco Use Types [...] Description 09/17/2025 2:00 PM EST Office Visit [facility] [place] [facility] [address] [place] [address] [place] [address] [place] [address] documented as of this encounter Procedures Procedure [...] documented as of this encounter Care Teams Dot Compliance Coordinator Relationship Specialty Start Date End Date Leandra Gonzales MD PCP - General Internal Medicine 06/30/18 Leandra Gonzales MD [address] [place] [address] PCP - Jacek DE GUZMAN Attributed Physician 02/01/20 04/01/25 Keyur North MD Attending Physician Hand Surgery 12/17/17 documented as of this encounter
--- OUTSIDE RECORDS SUMMARY | 2025-07-26 11:12 | XMS_ITS | Encounter Summary ---
Author Organization [facility] Address [facility] [place] [address] Phone Care Team Providers Care Associate Drafter Name Role Phone Keyur North MD Unavailable Unavaila ble Leandra Gonzales MD Primary Care Provider [phone] Leandra Gonzales MD Unavailable Encounter Details Date Type Department Care Team (Late st Contact Info) Description 01/01/2022 Collaborative Link Encounter [facility] [address] [place], [place] [id number] Social History Tobacco Use Types Packs/Day Years [...] Assessment Author No 04/18/2018 7:10 AM EDT [place], [place] A, Registered Nurse * Do you [...] Description 09/17/2025 2:00 PM EST Office Visit [facility] [place] [facility] [address] [facility] [address] [place] [id number] [place] [address] [place] [address] documented as of this encounter Visit Diagnoses Not on filedocumented in this encounter Care Teams Associate Drafter Relationship Specialty Start Date End Date Leandra Gonzales MD PCP - General Internal Medicine 06/30/18 Leandra Gonzales MD [address] [place] [address] PCP - Jacek DE GUZMAN Attributed Physician 02/01/20 04/01/25 Keyur North MD Attending Physician Hand Surgery 12/17/17 documented as of this encounter
--- OUTSIDE RECORDS SUMMARY | 2025-07-26 11:12 | XMS_ITS | Clinical Summary ---
Author Organization [facility] Address [address] [place] [address] Phone Care Team Providers Care Sander Hand Name Role Phone Keyur North MD, Sarah MD Primary Care Provider [phone] Allergies No known active allergies Medications * [...] every morning before breakfast. 90 capsule 1 10/29/19 15 Active ferrous gluconate (FERGON) 325 (36 FE) MG TABS Take 1 tablet by mouth 2 (two) times daily. 180 tablet 1 12/01/19 15 Active Zinc 100 MG TABS Take 1 tablet by mouth daily. Active TURMERIC CURCUMIN PO Take by mouth. Active Misc Natural Products (HEALTHY LIVER PO) Take by mouth 2 (two) times daily. Active metoprolol tartrate (LOPRESSOR) 50 MG TABS TAKE 1 TABLET BY MOUTH TWICE A DAY 180 tablet 1 01/06/20 25 Active levothyroxine (SYNTHROID, LEVOTHROID) 50 MCG TABS TAKE 1 TABLET BY MOUTH EVERY DAY 90 tablet 1 01/06/20 25 Active potassium chloride SA (KLOR-CON M20) 20 MEQ TBCR Take 1 tablet by mouth 2 (two) times daily. 180 tablet 1 03/29/20 25 Active calcium carbonate (OYSTER SHELL CALCIUM) 500 mg tablet TAKE 1 TABLET BY MOUTH TWICE A DAY 180 tablet 1 07/10/20 25 Active furosemide (LASIX) 40 MG TABSIndications: Left leg swelling TAKE 1 TABLET BY MOUTH EVERY MORNING. FOR SWELLING 90 tablet 1 07/21/20 25 Active XARELTO 20 MG TABSIndications: Permanent atrial fibrillation (HCC) TAKE 1 TABLET BY MOUTH EVERY DAY 90 tablet 1 07/22/20 25 Active furosemide (LASIX) 40 MG TABSIndications: Left leg swelling TAKE 1 TABLET BY MOUTH EVERY MORNING. FOR SWELLING 90 tablet 1 01/06/20 25 025 Discontinued calcium carbonate (OYSTER SHELL CALCIUM) 500 mg tablet TAKE 1 TABLET BY MOUTH TWICE A DAY 180 tablet 1 01/06/20 25 025 Discontinued rivaroxaban (XARELTO) 20 mg TABSIndications: Permanent atrial fibrillation (HCC) Take 1 tablet by mouth daily. 90 tablet 1 04/28/20 25 025 Discontinued Active Problems Problem Noted Date Diagnosed Date [...] Encounters Date Type Department Care Team Description 2025 Refill [facility] [place] [facility] [address] [place] [address] Clifford Obrien MD Permanent atrial fibrillation 07/21/2025 Refill [facility] [address] [place] [address] Leandra Gonzales MD Left leg swelling 07/10/2025 Refill [facility] [address] [place] [address] Leandra Gonzales MD 04/28/2025 Refill [facility] [place] [facility] [address] [place] [address] Adriana Saleh, Registered Nurse Permanent atrial fibrillation [...] Description 09/17/2025 2:00 PM EST Office Visit [facility] [place] [facility] [address] [place] [address] [place] [address] [place] [address] Health Maintenance Due Date Last [...] Care Plan MYC COLONOSCOPY PREP EDUCATION No SonyTrevoradamaris RAE CC COLONOSCOPY PREP PATIENT EDUCATION GOAL TEMPLATE [...] EDT) HEPATITIS A AB IGM NONREACTIVE NONREACTIVE [facility] RECE[facility] HEP B CORE IGM NONREACTIVE NONREACTIVE [facility] RECEIVING HEP B SURFACE AG NONREACTIVE NONREACTIVE [facility] RECEIVING Comment: (NOTE) HBsAg not detected. Does not exclude possibility of exposure to HBV. HEPATITIS C AB NONREACTIVE NONREACTIVE [facility] RECEIVING Comment: (NOTE) No antibodies to HCV detected. Does not exclude possibility of exposure to HCV. Test performed using Bridgett Elecsys electrochemiluminescence immunassay (ECLIA). Tested at: [place] [address] Whole Blood 12/30/2024 12:0 1 PM EDT 12/30/2024 12:06 PM EDT us Leandra Gonzales MD LAB BLOOD ORDERABLES Final Resul t [facility] [address] [place] [address] [facility] RECEIV[facility] [address] [place] [address] * DXA BONE DENSITY (10/03/2023 3:18 PM [...] the content of this report, please contact [facility] radiology by calling [phone] DXA scanner: TheTake ([id number]). LSC in g/cm2 at 95% confidence: Lumbar [...] about the content of this report, pleasecontact [facility] radiology by calling [phone] DXA scanner: [employer] W ([id number]). LSC in g/cm2 at 95%confidence: Lumbar spine [...] and/or decisionmaking regarding pharmacologic therapy. us Leandra Gonzales MD [facility] Final Result * [facility] SCR BILAT (10/03/2023 2:58 PM EST) Anatomical [...] appointment, or scheduling can be reached at [phone]. RISK ASSESSMENT: A preliminary breast cancer risk assessment was conducted as part of the patient?s screening mammogram. Patients with a preliminarily elevated screening score who are interested in further information are encouraged to contact our High Risk Navigator at [phone], or provider can place a referral to the high risk breast program, [id number]. Patient's lifetime Lyric model risk: 5.61% (20% and greater considered high risk) [facility] Family History Risk Score: 0 (1 and [...] nonsurgical architectural distortion identified. Leandra Gonzales MD [facility] Final Result from Last 3 Months or Most Recently Relevant to Health Maintenance Additional Health Concerns Active Problems Noted Date Diagnosed Date MYC COLONOSCOPY PREP EDUCATION 08/11/2024 MYC COLONOSCOPY PREP EDUCATION 08/11/2024 Insurance [id number] [id number] Care Teams Sander Hand Relationship Specialty Start Date End Date Leandra Gonzales MD PCP - General Internal Medicine 06/30/18 Keyur North MD Attending Physician Hand Surgery 12/17/17
--- OUTSIDE RECORDS SUMMARY | 2025-07-26 11:12 | XMS_ITS | Encounter Summary ---
Author Organization [facility] Address [address] [place] [address] [place] [address] Phone Care Team Providers Care Border Patrol Agent Name Role Phone Keyur North MD [facility] Leandra Gonzales MD Primary Care Provider [phone] Reason for Visit * Reason Comments Refill Request Encounter Details Date Type Department Care Team (Late st Contact Info) Description 07/10/2025 Refill [facility] [address] [place] [address] Leandra Gonzales MD [address] [place] [address] Social History Tobacco Use Types [...] car, in a tent, in an overnight senior living, or temporarily in someone else's home (i.e. [...] car, in a tent, in an overnight senior living, or temporarily in someone else's home (i.e. [...] 11:15 AM Shae Celaya, Registered Nurse * Because of a physical, mental, or emotional condition, do you have difficulty doing errands alone such as visiting a doctor???s office or shopping? (15 years old or older) Answer Date of Assessment Author No 08/28/2024 11:15 AM Shae Celaya, Registered Nurse documented as of this encounter Mental Status * Because of a physical, mental, or emotional condition, do you have serious difficulty concentrating, remembering, or making decisions? (5 years old or older) Answer Entry Date Author No 08/28/2024 11:15 AM Shae Celaya Registered Nurse documented in this encounter Plan of Treatment Upcoming Encounters Date Type Department Care Team (Late st Contact Info) Description 09/17/2025 2:00 PM EST Office Visit [facility] Heart & [facility] [place] [facility] [address] [place] [address] [place] [address] [place] [address] documented as of this encounter Goals Goal Patient Goal Type Associated Problems Recent Progress Patient-Stated? Author MYC CC COLONOSCOPY PREP PATIENT EDUCATION GOAL TEMPLATE Care Plan MYC COLONOSCOPY PREP EDUCATION No Lilibeth Cardoza MYC CC COLONOSCOPY PREP PATIENT EDUCATION GOAL TEMPLATE Care Plan MYC COLONOSCOPY PREP EDUCATION No Darlene Madrigal documented as of this encounter Visit Diagnoses Not on filedocumented in this encounter Additional Health Concerns Active Problems Noted Date Diagnosed Date MYC COLONOSCOPY PREP EDUCATION 08/11/2024 MYC COLONOSCOPY PREP EDUCATION 08/11/2024 Assessment Noted Time PHQ-2 Depression Total Score: 0 11/21/19 25 11:28 AM EDT documented as of this encounter Care Teams Border Patrol Agent Relationship Specialty Start Date End Date Leandra Gonzales MD PCP - General Internal Medicine 06/30/18 Keyur North MD Attending Physician Hand Surgery 12/17/17 documented as of this encounter
--- OUTSIDE RECORDS SUMMARY | 2025-07-26 11:12 | XMS_ITS | Encounter Summary ---
Author Organization [facility] Address [facility] [place] [address] Phone Care Team Providers Care General Counselor Name Role Phone Keyur North MD Unavailable Unavaila ble Leandra Gonzales MD Primary Care Provider [phone] Leandra Gonzales MD Unavailable Encounter Details Date Type Department Care Team ([facility] st Contact Info) Description 07/14/2024 Collaborative Link Encounter [facility] [address] [place], [place] [phone] Social History Tobacco Use Types Packs/Day Years [...] car, in a tent, in an overnight long-term, or temporarily in someone else's home (i.e. [...] car, in a tent, in an overnight long-term, or temporarily in someone else's home (i.e. [...] Description 09/17/2025 2:00 PM EST Office Visit [facility] Heart [facility] [place] [facility] [address] [place] [address] [place] [address] [place] [address] documented as of this encounter Visit Diagnoses Not on filedocumented in this encounter Additional Health Concerns Assessment Noted Time PHQ-2 Depression Total Score: 0 02/26/20 24 2:48 PM EDT documented as of this encounter Care Teams General Counselor Relationship Specialty Start Date End Date Leandra Gonzales MD PCP - General Internal Medicine 06/30/18 Leandra Gonzales MD [address] [place] [address] PCP - Jacek DE GUZMAN Attributed Physician 02/01/20 04/01/25 Keyur North MD Attending Physician Hand Surgery 12/17/17 documented as of this encounter
--- OUTSIDE RECORDS SUMMARY | 2025-07-26 11:12 | XMS_ITS | Encounter Summary ---
Author Organization [facility] Address [facility] [place] [address] Phone Care Team Providers Care Cnmt Name Role Phone Keyur North MD Unavailable Unavaila ble Leandra Gonzales MD Primary Care Provider [phone] Leandra Gonzales MD Unavailable Encounter Details Date Type Department Care Team ([facility] st Contact Info) Description 06/11/2022 Collaborative Link Encounter [facility] [address] [place] [phone] Social History Tobacco Use Types Packs/Day Years [...] for colonoscopy ??? please have them contact [facility] GI at [phone] to schedule. If patient has completed colonoscopy, please obtain provider/facility information and send telephone encounter with information to Care Gaps [facility] documented in this encounter Plan of Treatment Upcoming Encounters Date Type Department Care Team (Late st Contact Info) Description 09/17/2025 2:00 PM EST Office Visit [facility] Heart & Vascular [place] [facility] [address] [place] [address] [place] [address] [place] [address] documented as of this encounter Visit Diagnoses Not on filedocumented in this encounter Care Teams Cnmt Relationship Specialty Start Date End Date Leandra Gonzales MD PCP - General Internal Medicine 06/30/18 Leandra Gonzales MD [address] [place] [address] PCP - Jacek DE GUZMAN Attributed Physician 02/01/20 04/01/25 Keyur North MD Attending Physician Hand Surgery 12/17/17 documented as of this encounter
--- OUTSIDE RECORDS SUMMARY | 2025-07-26 11:12 | XMS_ITS | Encounter Summary ---
Author Organization [facility] Address [address] [place] [address] Phone Care Team Providers Care Home Health Clinical Supervisor Name Role Phone Keyur North MD, Sarah MD Primary Care Provider [phone] Reason for Visit * Reason Comments Refill Request Encounter Details Date Type Department Care Team (Late st Contact Info) Description 2025 Refill [facility] [address] [facility] [address] [place] [address] [place] [address] [place] [address] Permanent atrial fibrillation Social History Tobacco Use [...] 11:15 AM Shae Celaya, Dana Nurse * Are you blind or do [...] encounter Miscellaneous Notes * Telephone Encounter - Oswaldo Duran MA - 2025 11:26 AM EST Marley López NEEDS A REFILL ON rivaroxaban (Xarelto) LAST OV: 09/16/24 NEXT OV: Visit date not found LAST LABS: 11/20/24 Lab Results Component Value Date NA 138 11/20/2024 K 3.9 11/20/2024 CL 107 11/20/2024 CO2 22 11/20/2024 AGAP 9 11/20/2024 GLU 86 11/20/2024 BUN 20 11/20/2024 CRET 0.75 11/20/2024 GFRAA 105 12/23/2020 GFRNA 91 12/23/2020 ALT 27 12/30/2024 ALB 4.0 12/30/2024 ALKP 56 12/30/2024 AST 34 12/30/2024 WBC (x10(3)/mcL) Date Value 11/20/2024 6.7 HEMOGLOBIN (g/dL) Date Value 11/20/2024 12.6 HEMATOCRIT (%) Date Value 11/20/2024 41.2 PLATELET (x10(3)/mcL) Date Value 11/20/2024 174 CHOLESTEROL Date Value Ref Range Status 11/20/2024 103 <200 mg/dL Final Comment: (NOTE) < 200 Desirable 200 - 239 Borderline High >= 240 High HDL CHOLESTEROL Date Value Ref Range Status 11/20/2024 38 (L) >=40 mg/dL Final Comment: (NOTE) > 60 Optimal 40 - 60 Acceptable < 40 Low LDL CHOLESTEROL (CALCULATED) Date Value Ref Range Status 11/20/2024 48 <100 mg/dL Final Comment: (NOTE) < 100 Optimal 100 - 129 Near or above optimal 130 - 159 Borderline High 160 - 189 High >= 190 Very High The National Institutes of Health (NIH) equation is used for all lipid panels that report calculated LDL (LDL-C). TRIGLYCERIDE Date Value Ref Range Status 11/20/2024 82 <150 mg/dL Final Comment: (NOTE) < 150 Normal 150 - 199 Borderline High 200 - 499 High >= 500 Very High No results found for: TSH3G , DIG Preferred Pharmacy: [id number] [place], [place] - [address] [facility] [phone] [id number] [address] [place] [address] AT [facility] [phone] [facility] [address] [phone] Oswaldo Duran MA documented in this encounter Plan of Treatment Upcoming Encounters Date Type Department Care Team (Late st Contact Info) Description 09/17/2025 2:00 PM EST Office Visit [facility] [place] [facility] [address] [place] [address] [place] [address] [place] [address] documented as of this encounter [...] documented as of this encounter Care Teams Home Health Clinical Supervisor Relationship Specialty Start Date End Date Leandra Gonzales MD PCP - General Internal Medicine 06/30/18 Keyur North MD Attending Physician Hand Surgery 12/17/17 documented as of this encounter
--- OUTSIDE RECORDS SUMMARY | 2025-07-26 11:12 | XMS_ITS | Encounter Summary ---
Author Organization [facility] Address [facility] [place] [address] Phone Care Team Providers Care Real Estate Site Analyst Name Role Phone Keyur North MD Unavailable Unavaila ble Leandra Gonzales MD Primary Care Provider [phone] Leandra Gonzales MD Unavailable Encounter Details Date Type Department Care Team ([facility] st Contact Info) Description 10/19/2022 Collaborative Link Encounter [facility] [address] [place] [phone] Social History Tobacco Use Types Packs/Day Years [...] 09/17/2025 2:00 PM EST Office Visit [facility] [place] - [facility] [address] [facility] [address] [place] [address] [place] [address] [place] [address] documented as of this encounter Visit Diagnoses Not on filedocumented in this encounter Care Teams Real Estate Site Analyst Relationship Specialty Start Date End Date Leandra Gonzales MD PCP - General Internal Medicine 06/30/18 Leandra Gonzales MD [address] [place] [address] PCP - Jacek DE GUZMAN Attributed Physician 02/01/20 04/01/25 Keyur North MD Attending Physician Hand Surgery 12/17/17 documented as of this encounter
--- OUTSIDE RECORDS SUMMARY | 2025-07-26 11:12 | XMS_ITS | Encounter Summary ---
Author Organization [facility] Address [address] [place] [address] Phone Care Team Providers Care Plater Barrel Name Role Phone Keyur North MD Unavailable Unavaila ble Leandra Gonzales MD Primary Care Provider [phone] Leandra Gonzales MD Unavailable Encounter Details Date Type Department Care Team ([facility] st Contact Info) Description 08/07/2022 Collaborative Link Encounter [facility] [address] [place], [place] [phone] Social History Tobacco Use Types Packs/Day Years [...] Assessment Author No 04/18/2018 7:10 AM EDT [place], Chichi A, Registered Nurse * Do you [...] Description 09/17/2025 2:00 PM EST Office Visit [facility] [place] - [facility] [address] [facility] [address] [place] [address] [place] [address] [place] [address] documented as of this encounter Visit Diagnoses Not on filedocumented in this encounter Care Teams Plater Barrel Relationship Specialty Start Date End Date Leandra Gonzales MD PCP - General Internal Medicine 06/30/18 Leandra Gonzales MD [address] [place] [address] PCP - Jacek DE GUZMAN Attributed Physician 02/01/20 04/01/25 Keyur North MD Attending Physician Hand Surgery 12/17/17 documented as of this encounter
--- OUTSIDE RECORDS SUMMARY | 2025-07-26 11:12 | XMS_ITS | Clinical Summary ---
Author Organization [facility] Phone Care Team Providers Care Manager Product Marketing Name Role Phone Unavailable Primary Care Provider Unavailabl e Medications B-complex with vitamin C Oral Tablet Take 1 Tablet by mouth daily. Active Turmeric, Bulk, 95 % Misc Powder Take by mouth. Activ e rivaroxaban (XARELTO) 20 mg Oral Tablet Take 20 mg by mouth daily. 5 Active potassium chloride (KLOR-CON M) 20 mEq Oral Tab Sust.Rel. Particle/Tatiana l Take 20 mEq by mouth. 5 Active phenazopyridine (PYRIDIUM) 200 mg Oral Tablet Take 200 mg by mouth 3 times daily. 5 Active nystatin (MYCOSTATIN) Top Cream APPLY TOPICALLY TO AFFECTED AREA(S) 3 TIMES DAILY 5 Active nitrofurantoin, macrocrystal-mo nohydrate, (MACROBID) 100 mg Oral Capsule Take 100 mg by mouth 2 times daily. for 7 days 5 Active metoprolol (LOPRESSOR) 50 mg Oral Tablet Take 50 mg by mouth 2 times daily. 5 Active LEVOthyroxine (SYNTHROID) 50 mcg Oral Tablet Take 50 mcg by mouth daily. 5 Active fUROsemide (LASIX) 40 mg Oral Tablet Take 40 mg by mouth daily. 5 Active esomeprazole (NEXIUM) 40 mg Oral Capsule, Delayed Release(E.C.) Take 40 mg by mouth every morning (before breakfast). 5 Active Encounters Date Type Department Care Team Description 07/13/2025 3:45 PM EST Ancillary Procedure [facility] Generator Rebuilder [address] [place] [address] Jalil Hall MD Left knee pain, unspecified chronicity 07/13/2025 3:15 PM EST Office Visit [facility] Rebuilder [address] [place] [address] Jalil Hall MD Left knee pain, unspecified chronicity (Primary Dx); Primary osteoarthritis of left knee from Last 3 Months Social History Tobacco Use Types Packs/Day Years [...] Description 10/27/2025 3:45 PM EST [facility] [address] [place] [address] Lad[address] Saldana, [place] [address] [place] [address] Health Maintenance Due Date Last Done Comments Wellness Exam Medicare 1958 Hepatitis C Screening 1971 DTaP/TDaP/Td (1 - Tdap) 1972 Cologuard 1998 Colon Cancer Screening 1998 Colonoscopy 1998 FIT 1998 Sigmoidoscopy 1998 Virtual Colonography 1998 Pneumococcal Vaccine 50+ (1 of 1 - PCV) 2003 Zoster (1 of 2) 2003 COVID-19 Vaccine ( - 2024-2 6 season) 2025 Influenza Vaccine (#1) 2025 Breast Cancer Screening 10/03/2025 10/03/2023 Bone Density Screening Completed 10/03/2023 Hepatitis B Vaccine Aged Out No longe r eligible based on patient's age to complete this topic Meningococcal B Vaccine Aged Out No l onger eligible based on patient's age to complete this topic Procedures Procedure Name Priority Date/Time Associated Diagnosis Comments XR KNEE LEFT AP LATERAL INTERNAL AND EXTERNAL OBLIQUES Routine 07/13/2025 4:02 PM EST Left knee pain, unspecified chronicity from Last 3 Months Results * XR KNEE LEFT AP LATERAL INTERNAL AND EXTERNAL OBLIQUES (07/13/2025 4:02 PM EST) Narrative VictorianouserXavier - 07/13/2025 4:03 PM EST Please see physician's note from office encounter for x-ray imaging result us Jalil Hall MD IMG DIAGNOSTIC IMAGI NG ORDERABLES Final Result from Last 3 Months Insurance BRIAN HOFFMANN MR
--- OUTSIDE RECORDS SUMMARY | 2025-07-26 11:12 | XMS_ITS | Encounter Summary ---
Author Organization [facility] Address [facility] [place] [address] Phone Care Team Providers Care Supervisor Maintenance Name Role Phone Keyur North MD [facility] Leandra Gonzales MD Primary Care Provider [phone] Reason for Visit * Reason Comments Refill Request Encounter Details Date Type Department Care Team (Late st Contact Info) Description 07/21/2025 Refill [facility] [address] [place] [address] Leandra Gonzales MD [address] [place] [address] Left leg swelling Social History Tobacco Use Types Packs/Day Years [...] Description 09/17/2025 2:00 PM EST Office Visit [facility] & Vascular [place] [facility] [address] [place] [address] [place] [address] [place] [address] documented as of this encounter Goals Goal Patient Goal Type Associated Problems Recent Progress Patient-Stated? Author MYC CC COLONOSCOPY PREP PATIENT EDUCATION GOAL TEMPLATE Care Plan MYC COLONOSCOPY PREP EDUCATION No Sony Lilibeth MYC CC COLONOSCOPY PREP PATIENT EDUCATION GOAL TEMPLATE Care Plan MYC COLONOSCOPY PREP EDUCATION No Darlene Madrigal documented as of this encounter Visit Diagnoses Diagnosis Left leg swelling documented in this encounter Additional Health Concerns Active Problems Noted Date Diagnosed Date MYC COLONOSCOPY PREP EDUCATION 08/11/2024 MYC COLONOSCOPY PREP EDUCATION 08/11/2024 Assessment Noted Time PHQ-2 Depression Total Score: 0 11/21/19 25 11:28 AM EDT documented as of this encounter Care Teams Supervisor Maintenance Relationship Specialty Start Date End Date Leandra Gonzales MD PCP - General Internal Medicine 06/30/18 Keyur North MD Attending Physician Hand Surgery 12/17/17 documented as of this encounter
== END 2025-07-26 23:59 | disposition home or self-care (01) ==
LOC: LAB.DROPOF 10:48
PROVIDERS: PCP Family Medicine; Visit Provider Nurse Practitioner Family
DX: R30.0 Dysuria (principal)
CPT/HCPCS: 87086; 87088

== ENCOUNTER 2025-08-20 14:00 | Outpatient (CLI) | payer MEDICARE, SELFPAY | END 2025-08-20 23:59 | disposition home or self-care (01) | LOC: LAB.DROPOF 08-21 09:31 | PROVIDERS: PCP Family Medicine; Visit Provider Family Medicine | DX: N39.0 Urinary tract infection, site not specified (principal); D72.829 Elevated white blood cell count, unspecified | CPT/HCPCS: 87086; 87088; 87186 ==